=== PATIENT | female | born 1970 | race African-American/Black ===

== ENCOUNTER 2016-06-30 10:43 | Inpatient (IN) ==
[2016-06-30] MEDS ORDERED: SODIUM CHLORIDE 0.9% 2,000 ML IV STA (11:04)
[2016-06-30] MEDS ORDERED: HYDROmorphone 2 MG/1 ML VIAL IV STA ×2 (11:04→12:50)
[2016-06-30] MEDS ORDERED: METOCLOPRAMIDE 10 MG/2 ML VIAL IV STA (11:04)
[2016-06-30] MEDS ORDERED: ONDANSETRON 4 MG/2 ML VIAL IV STA (11:04)
[2016-06-30] MEDS ORDERED: PANTOPRAZOLE 40 MG VIAL IV STA (11:04)
--- NOTE | 2016-06-30 11:10 | Emergency Department Note ---
Arrival - Arrival Chief Complaint: Abdominal / Flank Pain Stated Complaint: pancreatitis,diarrhea,vomiting,nausea ED Nursing Triage Note: C/o upper abd pain and N/V/D-onset yesterday. States symptoms feel like previous pancreatitis flare ups. Mode of Arrival: Wheelchair Limitations: No Limitations Source: Patient Time Seen by Provider: 06/30/16 11:04 - History of Present Illness HPI Narrative: This 45-year-old black female presents with complaints of severe midepigastric pain associated with repeated bouts of vomiting and ongoing nausea. The patient states is similar to prior pancreatitis attacks, the last being in the last 6 months. She denies chills, fever, shortness of breath, or chest pain. The patient is a nondrinker and has never been given any explanation as to why she has recurrent pancreatitis. Of note, her mother with pancreatic carcinoma. Currently she presents very uncomfortable, squirming on the gurney, complaining of nausea. Onset (ago): hour(s) (patient presents 24 hours post onset of symptoms) Consistency: constant Severity: severe Severity scale (1-10): 8 Quality: burning Date of Last Menstrual Period: hysterectomy Allergies/Adverse Reactions: Allergies Allergy/AdvReac Type Severity Reaction Status Date / Time duloxetine [From Cymbalta] AdvReac Unknown/Unable Verified 07/21/15 14:16 to obtain Home Medications: Home Medications Medication Instructions Recorded Confirmed Type Citalopram [CeleXA] 20 mg PO BEDTIME 07/21/15 06/30/16 History Gabapentin 1 tablet PO TID 07/21/15 06/30/16 History Trazodone HCl 1 tablet PO DAILY PRN 07/21/15 06/30/16 History Zolpidem [Ambien] 1 tablet PO BEDTIME 07/21/15 06/30/16 History Hyoscyamine Tab [Levsin Tab] 0.125 mg PO QID PRN #30 tablet 07/27/15 06/30/16 Rx Topiramate [Topamax] 50 mg PO BID 09/20/15 06/30/16 History Metoclopramide Liquid [Reglan 10 mg PO ACHS #100 udcup 09/29/15 06/30/16 Rx Liquid] Pantoprazole Tab [Protonix Tab] 40 mg PO BID #60 tablet 09/29/15 06/30/16 Rx Review of System - Review of System 12 point system: reviewed and no additional remarkable complaints except as stated - Review of System Constitutional: Present: as per HPI Respiratory: Present: as per HPI Cardiovascular: Present: as per HPI Gastrointestinal: Present: as per HPI Medical,Surgical,& Family Hx - Medical History Cardio: History of: Hypertension, Cardiovascular Problems (heart murmur) Neurology: No history of: Seizures Gastrointestinal: History of: Pancreatitis Musculoskeletal: History of: Back/Neck Problems (Thoracic/Lumbar pain) - Surgical History Abdominal Surgeries: Surgical HX of: Abdominal Surgery, Cholecystectomy, Hernia Repair Reproductive Surgeries: Surgical HX of;: Section - Family History Family History: Reports;: Family Cancer (Mother of pancreatic cancer), Family Hypertension - Social History Smoking Status: Never smoker Frequency of Alcohol Use: None Type of Drug Use: None Exam Physical Examination: GENERAL: Well developed, well nourished black female in obvious discomfort HEENT: Normocephalic. No trauma. Moist mucous membranes. EOMI. PERRLA. ENT clear NECK: Supple. No adenopathy. CARDIAC: Regular. No murmurs. Heart rate 102 CHEST: Clear to auscultation. No respiratory distress. O2 sat 98% ABDOMEN: Soft. Very tender mid epigastrium with hypoactive bowel sounds. EXTREMITIES: No trauma. Normal ROM. No pedal edema. SKIN: No diaphoresis. No rash. NEURO: Alert. Physiologic exam. No focal deficits. Vital Signs: Vital Signs Temperature 98.1 F 06/30/16 10:48 Pulse Rate 88 06/30/16 12:20 Respiratory Rate 18 06/30/16 12:20 Blood Pressure 106/82 06/30/16 12:20 O2 Sat by Pulse Oximetry 100 06/30/16 12:20 Course - Reevaluation(s) Reevaluation #1: Discussed with patient the need for hospitalization to cool down pancreatic problem. - Consultations Consultation #1: Discussed patient with hospitalist service who will admit for further evaluation treatment. Results - Labs CBC & BMP: 06/30/16 11:03 06/30/16 11:03 Labs: I have reviewed the laboratory and noted the low potassium, elevated LFTs, and markedly elevated lipase - Diagnostic Findings Procedure: CT Abdomen and Pelvis: image reviewed by me, report reviewed by me ( benign CT with no evidence of pseudocyst) Disposition Clinical Impression: acute pancreatitis, hypokalemia Case discussed with: patient Disposition: Still a Patient Condition: Stable Time of Disposition: 13:50
[2016-06-30] MEDS ORDERED: PANTOPRAZOLE 40 MG VIAL IV ONE (11:18)
[2016-06-30] MEDS ORDERED: METOCLOPRAMIDE 10 MG/2 ML VIAL ONE (11:18)
[2016-06-30] MEDS ORDERED: ONDANSETRON 4 MG/2 ML VIAL ONE ×2 (11:19→14:21)
[2016-06-30] MEDS ORDERED: HYDROmorphone 2 MG/1 ML VIAL ONE (11:19)
[2016-06-30 11:33] LABS: Basophils % 0.5 % (0.0-0.8); Eosinophils # 0.1 10*3/uL (0.0-0.87); Eosinophils % 0.9 % (0.00-10.9); Hemoglobin 13.4 GM/DL (12.0-16.0); Immature Granulocytes % 0.3 %; Immature Granulocytes Absolute 0.02 #; Lymphocytes # 3.1 10*3/uL (1.4-4.0); Lymphocytes % 39.1 % (21.3-54.2); Mean Corpuscular HGB Conc 34.4 GM/DL (32-36); Mean Corpuscular Hemoglobin 26 PG (27-34); Mean Corpuscular Volume 75.7 FL (87-102); Mean Platelet Volume 11.3 FL (9.6-12.0); Monocytes # 0.5 10*3/uL (0.11-0.8); Monocytes % 6.1 % (1.7-12.7); Neutrophils # 4.2 10*3/uL (1.4-7.4); Neutrophils % 53.1 % (38.7-73.9); Platelet Count 309 10*3/uL (130-400); Red Blood Count 5.15 10*6/uL (3.8-5.5); Red Cell Distribution Width 13.5 % (9.3-17.3)
[2016-06-30 11:48] LABS: Apearance,Urine Slightly Hazy (Clear); Bilirubin,Urine Negative (Negative); Blood, Urine Negative (Negative); Glucose,Urine (UA) Negative (Negative); Ketones,Urine Negative (Negative); Mucus,Urine Occasional /LPF (Occasional); Nitrite,Urine Negative (Negative); Protein,Urine 30 MG/DL; RBC,Urine 1 /HPF (0-4); Squamous Epithelial Cell,Urine Occasional /HPF (0-10); Urine Color Yellow (Yellow); Urine Specific Gravity 1.013 (1.001-1.035); Urine Urobilinogen < 2.0 EU/DL (0.2-1.0); WBC,Urine 3 /HPF (0-6)
[2016-06-30 12:35] LABS: Alanine Aminotransferase 89 U/L (13-56); Albumin 4.3 G/DL (3.4-5.0); Alkaline Phosphatase 59 U/L (45-117); Amylase 101 U/L (25-115); Aspartate Amino Transferase 74 U/L (0-37); Blood Urea Nitrogen 12 MG/DL (7-18); Calcium 8.7 MG/DL (8.5-10.1); Glucose 87 MG/DL (74-106); Osmolality,Calculated 275.5 MOS/KG (273-304); Potassium 3.3 MMOL/L (3.5-5.1); Sodium 139 MMOL/L (136-145); Total Protein 8.9 G/DL (6.4-8.3); Troponin I Only < 0.015 NG/ML (0.00-0.045)
--- NOTE | 2016-06-30 13:18 | CT Report ---
CT abdomen pelvis w con Indication: Pancreatitis, nausea, vomiting, diarrhea Comparison: Prior CT abdomen pelvis dated 09/21/15 Technique: CT of the abdomen and pelvis was performed following administration of intravenous contrast. Coronal and sagittal reformatted images were additionally created and submitted for review. The total DLP is 773.1 mGy*cm. Findings: Very minimal posterior basilar dependent atelectatic changes are noted bilaterally. Lung bases are otherwise clear. There is no pleural or pericardial effusion. ABDOMEN: Liver/Gallbladder: No abnormal enhancing hepatic lesions. There is been a prior cholecystectomy. The portal vein is patent. Spleen: No acute findings. Pancreas: No prominence of the distal pancreas is stable from prior. There is no pancreatic ductal dilatation or other focal pancreatic abnormality. Adrenals: No significant abnormality Kidneys: Both kidneys enhance symmetrically with normal excretion of contrast from both kidneys on delayed images. Bowel/mesentery: Small bowel nondilated. There is no free fluid/air within the abdomen. There is no mesenteric adenopathy. Colon appears unremarkable. Anterior abdominal wall surgical alexei are noted which appear similar prior. Retroperitoneum: No evidence of aortic aneurysm or significant retroperitoneal adenopathy. PELVIS: No free fluid or adenopathy within the pelvis. The bladder appears unremarkable for degree of distention. There has been a prior hysterectomy. A 3 cm right ovarian cyst is noted. BONES: No acute or suspicious osseous abnormalities are identified. IMPRESSION: 1. No acute abnormality within the abdomen or pelvis to explain patient's symptoms. 2. Small right ovarian cyst measuring 3 cm. Otherwise, no significant change when compared to prior. 06/30/2016 1:10 PM PROCEDURE INTERPRETED AT [facility] DEPARTMENT OF RADIOLOGY Final Report Signed by: Luiz Pate
[2016-06-30] MEDS ORDERED: MORPHINE 2 MG/1 ML SYRINGE ONE (14:22)
[2016-06-30 14:24] LABS: Lactic Acid 2.1 MMOL/L (0.4-2.0)
[2016-06-30] MEDS: MORPHINE 2 MG/1 ML SYRINGE IV PRN ×4 (14:25→23:56)
[2016-06-30] MEDS: ONDANSETRON 4 MG/2 ML VIAL IV PRN ×3 (14:27→21:18)
--- NOTE | 2016-06-30 14:31 | Hospitalist History & Physical ---
Assessment and Plan (1) Abdominal pain Status: Acute Assessment and plan: According to previous records patient has a history of gastroparesis associated with gastritis and duodenitis. CT of the abdomen and pelvis was negative for any acute findings today. She does have a mild elevation in her lipase. This could be an exacerbation of her gastritis and gastroparesis she does have some nausea of vomiting and diarrhea but she denies any bloody stools. Patient will be admitted to regular medicine floor for IV fluids and pain control or bowel rest. Will start her on scheduled Reglan she did have a gastroenterology consultation with EGD done on previous admissions we will hold off on consulting GI. If she is not getting relief with the Reglan will switch to erythromycin which per GI notes was the next recommendation. Also, because of the diarrhea will check stools for C. difficile along with white blood cells and ova and parasites. Current Visit: No Qualifiers: Abdominal location: generalized Qualified Code(s): R10.84 - Generalized abdominal pain (2) Serum lipase elevation Status: Acute Current Visit: No History of Present Illness Chief complaint: abdominal pain History of present illness: Ms. Holden is a 45 year old female who presents complaining of mid epigastric abdominal pain with radiation to the right upper quadrant. Pain is constant and associated with nausea and vomiting. When she attempts to eat some grits his morning and she vomited. She denies any bloody stools. She denies any sick contacts. Patient states that she has a history of pancreatitis but after reviewing previous admissions she does not have a history of pancreatitis. It appears that she has erosive gastritis associated with duodenitis also gastroparesis. At that time she did have an extensive GI workup and was placed on Reglan and a proton pump inhibitor. Today her CT is normal without any signs of pancreatitis but she does have elevation of lipase of around 500. Home Medications Medication Instructions Recorded Confirmed Type Citalopram [CeleXA] 20 mg PO BEDTIME 07/21/15 06/30/16 History Gabapentin 1 tablet PO TID 07/21/15 06/30/16 History Trazodone HCl 1 tablet PO DAILY PRN 07/21/15 06/30/16 History Zolpidem [Ambien] 1 tablet PO BEDTIME 07/21/15 06/30/16 History Hyoscyamine Tab [Levsin Tab] 0.125 mg PO QID PRN #30 tablet 07/27/15 06/30/16 Rx Topiramate [Topamax] 50 mg PO BID 09/20/15 06/30/16 History Metoclopramide Liquid [Reglan 10 mg PO ACHS #100 udcup 09/29/15 06/30/16 Rx Liquid] Pantoprazole Tab [Protonix Tab] 40 mg PO BID #60 tablet 09/29/15 06/30/16 Rx Allergies Allergy/AdvReac Type Severity Reaction Status Date / Time duloxetine [From Cymbalta] AdvReac Unknown/Unable Verified 07/21/15 14:16 to obtain Medical,Surgical,& Family Hx - Medical History Cardio: History of: Hypertension, Cardiovascular Problems (heart murmur) Neurology: No history of: Seizures Gastrointestinal: History of: GI Problems (gastroparesis, erosive gastritis and duodenitis) Musculoskeletal: History of: Back/Neck Problems (Thoracic/Lumbar pain) - Surgical History Abdominal Surgeries: Surgical HX of: Abdominal Surgery, Cholecystectomy, EGD, Hernia Repair Reproductive Surgeries: Surgical HX of;: Section - Family History Family History: Reports;: Family Cancer (Mother of pancreatic cancer), Family Hypertension - Social History Smoking Status: Never smoker Frequency of Alcohol Use: None Type of Drug Use: None Marital Status: Single Lives With:: Alone Functional capacity: independent ambulation - Constitutional Constitutional: Present: as per HPI - EENT Eyes: Present: as per HPI Ears: Present: as per HPI Nose, mouth and throat: Present: as per HPI - Cardiovascular Cardiovascular: Present: as per HPI - Respiratory Respiratory: Present: as per HPI - Gastrointestinal Gastrointestinal: Present: abdominal pain, diarrhea, nausea, vomiting - Genitourinary Genitourinary: Present: as per HPI - Musculoskeletal Musculoskeletal: Present: as per HPI - Neurological Neurological: Present: as per HPI - Psychiatric Psychiatric: Present: as per HPI - Endocrine Endocrine: Present: as per HPI - Hematologic/Lymphatic Hematologic/Lymphatic: Present: as per HPI Exam - Constitutional Vitals: Period Temp Pulse Resp BP Sys/Mccarthy Pulse Ox Last 24 Hr 98.1 F 84-102 18-20 106-125/65-86 94-100 General appearance: over weight Exam: Middle-aged female lying in bed appears to be in discomfort but no respiratory distress - Head Head exam: Present: normocephalic, atraumatic - Eye Eye exam: Present: EOMI Pupils: Present: NASEEM - ENT ENT exam: Present: normal exam - Neck Neck exam: Present: normal inspection - Respiratory Respiratory exam: Present: clear to auscultation bilaterally - Cardiovascular Cardiovascular exam: Present: regular rate and rhythm - GI/Abdominal GI/Abdominal exam: Present: hypoactive bowel sounds, soft - Extremities Exam Extremities exam: Present: full ROM - Neurological Exam Neurological exam: Present: alert, oriented X3, CN II-XII intact - Psychiatric Psychiatric exam: Present: normal affect, normal mood - Skin Skin exam: Present: warm, intact Results - Labs CBC & BMP: 06/30/16 11:03 06/30/16 11:03 - Diagnostic Findings Procedure: CT: report reviewed by me (no acute abnormalities with normal size pancreas small right ovarian cyst stable from previous CT)
[2016-06-30] MEDS ORDERED: METOCLOPRAMIDE 10 MG/10 ML UDCUP PO SCH (16:30)
[2016-06-30] MEDS ORDERED: INFLUENZA VIRUS VACCINE 0.5 ML SYRINGE IM ONE (17:00)
[2016-06-30] MEDS: GABAPENTIN 300 MG CAPSULE PO SCH ×2 (17:06→20:31)
[2016-06-30] MEDS: HYOSCYAMINE 0.125 MG TABLET PO PRN ×2 (17:06→23:20)
[2016-06-30] MEDS: METOCLOPRAMIDE 10 MG/2 ML VIAL IV SCH ×2 (17:07→23:57)
[2016-06-30] MEDS: ENOXAPARIN 40 MG/0.4 ML SYRINGE SUBCUT SCH (17:07)
[2016-06-30] MEDS: SODIUM CHLORIDE 0.9% 1,000 ML IV SCH ×3 (17:15→23:21)
[2016-06-30] MEDS: TOPIRAMATE 25 MG TABLET PO SCH (20:31)
[2016-06-30] MEDS: ZALEPLON 5 MG CAPSULE PO SCH (20:31)
[2016-06-30] MEDS: CITALOPRAM 20 MG TABLET PO SCH (20:31)
[2016-06-30] MEDS: traZODone 50 MG TABLET PO PRN (20:31)
[2016-06-30] MEDS: PANTOPRAZOLE 40 MG VIAL IV SCH (20:32)
[2016-06-30] MEDS ORDERED: PANTOPRAZOLE 40 MG TABLET PO SCH (21:00)
[2016-07-01] MEDS: SODIUM CHLORIDE 0.9% 1,000 ML IV SCH ×4 (02:40→22:08)
[2016-07-01] MEDS: ONDANSETRON 4 MG/2 ML VIAL IV PRN ×4 (04:44→19:18)
[2016-07-01] MEDS: MORPHINE 2 MG/1 ML SYRINGE IV PRN (04:47)
[2016-07-01] MEDS: METOCLOPRAMIDE 10 MG/2 ML VIAL IV SCH ×3 (05:50→19:04)
[2016-07-01 06:51] LABS: Basophils % 0.4 % (0.0-0.8); Eosinophils # 0.2 10*3/uL (0.0-0.87); Eosinophils % 2.8 % (0.00-10.9); Hematocrit 30.3 VOL% (35.7-47.0); Hemoglobin 10.2 GM/DL (12.0-16.0); Immature Granulocytes % 0.2 %; Immature Granulocytes Absolute 0.01 #; Lymphocytes # 2.9 10*3/uL (1.4-4.0); Lymphocytes % 55.4 % (21.3-54.2); Mean Corpuscular HGB Conc 33.7 GM/DL (32-36); Mean Corpuscular Hemoglobin 26 PG (27-34); Mean Corpuscular Volume 78.3 FL (87-102); Mean Platelet Volume 11.1 FL (9.6-12.0); Monocytes # 0.4 10*3/uL (0.11-0.8); Monocytes % 7.8 % (1.7-12.7); Neutrophils # 1.8 10*3/uL (1.4-7.4); Neutrophils % 33.4 % (38.7-73.9); Platelet Count 210 10*3/uL (130-400); Red Blood Count 3.87 10*6/uL (3.8-5.5); Red Cell Distribution Width 13.9 % (9.3-17.3); White Blood Count 5.3 10*3/uL (4.5-13.71)
[2016-07-01 07:23] LABS: Bilirubin,Total 0.9 MG/DL (0.2-1.0); Osmolality,Calculated 293.1 MOS/KG (273-304); Potassium 3.6 MMOL/L (3.5-5.1); Total Protein 5.7 G/DL (6.4-8.3)
[2016-07-01] MEDS: PANTOPRAZOLE 40 MG VIAL IV SCH ×2 (08:47→21:32)
[2016-07-01] MEDS: GABAPENTIN 300 MG CAPSULE PO SCH ×3 (08:48→21:32)
[2016-07-01] MEDS: TOPIRAMATE 25 MG TABLET PO SCH ×2 (08:48→21:34)
--- NOTE | 2016-07-01 09:03 | Hospitalist Progress Note ---
Assessment and Plan (1) Abdominal pain Status: Acute Assessment and plan: According to previous records patient has a history of gastroparesis associated with gastritis and duodenitis. CT of the abdomen and pelvis was negative for any acute findings today. She does have a mild elevation in her lipase. This could be an exacerbation of her gastritis and gastroparesis she does have some nausea of vomiting and diarrhea but she denies any bloody stools. Patient will be admitted to regular medicine floor for IV fluids and pain control or bowel rest. Will start her on scheduled Reglan she did have a gastroenterology consultation with EGD done on previous admissions we will hold off on consulting GI. If she is not getting relief with the Reglan will switch to erythromycin which per GI notes was the next recommendation. Also, because of the diarrhea will check stools for C. difficile along with white blood cells and ova and parasites. 07/01/16: she is still complaining of a significant amount of pain. Lipase trending down, ? pancreatitis with normal CT may need to repeat if recommended by GI continue with fluids, pain meds, GI consult Current Visit: No Qualifiers: Abdominal location: generalized Qualified Code(s): R10.84 - Generalized abdominal pain (2) Serum lipase elevation Status: Acute Assessment and plan: trending down Current Visit: No Hospitalist: Subjective Interval history: 45-year-old female with history of gastritis, gastroparesis and duodenitis presented yesterday complaining of abdominal pain. She did have a lipase elevated around 540 which is down to around 200 today. She still complaining of significant amount of abdominal pain. CT of the abdomen and pelvis did not reveal any acute pathology. She's not had any more nausea vomiting or diarrhea since admission status abdominal pain. Exam - Constitutional Vitals: Period Temp Pulse Resp BP Sys/Mccarthy Pulse Ox Last 24 Hr 97.5 F-98.0 F 68-93 16-20 94-134/54-85 97-100 General appearance: no acute distress - Head Head exam: Present: normocephalic, atraumatic - Eye Eye exam: Present: EOMI Pupils: Present: NASEEM - Neck Neck exam: Present: normal inspection - Respiratory Respiratory exam: Present: clear to auscultation bilaterally - Cardiovascular Cardiovascular exam: Present: regular rate and rhythm - GI/Abdominal GI/Abdominal exam: Present: hypoactive bowel sounds, tenderness, soft - Extremities Exam Extremities exam: Present: full ROM - Neurological Exam Neurological exam: Present: alert, oriented X3, CN II-XII intact - Psychiatric Psychiatric exam: Present: normal affect, normal mood - Skin Skin exam: Present: normal color, warm, intact Results - Labs CBC & BMP: 07/01/16 06:25 07/01/16 06:25 Specialty Discharge - Follow Up or Referrals - Discharge Medications No Action Citalopram [CeleXA] 20 mg PO BEDTIME Gabapentin 1 tablet PO TID Zolpidem [Ambien] 1 tablet PO BEDTIME Hyoscyamine Tab [Levsin Tab] 0.125 mg PO QID PRN #30 tablet PRN Reason: stomach cramps Topiramate [Topamax] 50 mg PO BID Metoclopramide Liquid [Reglan Liquid] 10 mg PO ACHS #100 udcup Pantoprazole Tab [Protonix Tab] 40 mg PO BID #60 tablet
[2016-07-01 09:50] LABS: Hypochromasia 1+
[2016-07-01] MEDS: HYDROmorphone 2 MG/1 ML VIAL IV PRN ×2 (10:27→14:43)
[2016-07-01] MEDS: ENOXAPARIN 40 MG/0.4 ML SYRINGE SUBCUT SCH (14:50)
--- NOTE | 2016-07-01 14:51 | Gastrointestinal Consult Note ---
Assessment and Plan - Time spent with patient Time spent with patient: Greater than 30 minutes (1) Abdominal pain Status: Acute Current Visit: No Qualifiers: Abdominal location: generalized Qualified Code(s): R10.84 - Generalized abdominal pain (2) Serum lipase elevation Status: Acute Current Visit: No (3) Other specified counseling Status: Acute Current Visit: Yes History of Present Illness History of present illness: Ms. Holden is a 45 year old female Home Medications Medication Instructions Recorded Confirmed Type Citalopram [CeleXA] 20 mg PO BEDTIME 07/21/15 06/30/16 History Gabapentin 1 tablet PO TID 07/21/15 06/30/16 History Zolpidem [Ambien] 1 tablet PO BEDTIME 07/21/15 06/30/16 History Hyoscyamine Tab [Levsin Tab] 0.125 mg PO QID PRN #30 tablet 07/27/15 06/30/16 Rx Topiramate [Topamax] 50 mg PO BID 09/20/15 06/30/16 History Metoclopramide Liquid [Reglan 10 mg PO ACHS #100 udcup 09/29/15 06/30/16 Rx Liquid] Pantoprazole Tab [Protonix Tab] 40 mg PO BID #60 tablet 09/29/15 06/30/16 Rx Allergies Allergy/AdvReac Type Severity Reaction Status Date / Time duloxetine [From Cymbalta] AdvReac Unknown/Unable Verified 07/21/15 14:16 to obtain Medical,Surgical,& Family Hx - Medical History Cardio: History of: Hypertension, Cardiovascular Problems (heart murmur) Neurology: No history of: Seizures Gastrointestinal: History of: Pancreatitis, GI Problems (gastroparesis, erosive gastritis and duodenitis) Musculoskeletal: History of: Back/Neck Problems (Thoracic/Lumbar pain) - Surgical History Abdominal Surgeries: Surgical HX of: Abdominal Surgery, Cholecystectomy, EGD, Hernia Repair Reproductive Surgeries: Surgical HX of;: Section - Family History Family History: Reports;: Family Cancer (Mother of pancreatic cancer), Family Hypertension - Social History Smoking Status: Never smoker Frequency of Alcohol Use: None Type of Drug Use: None Exam - Constitutional Vitals: Period Temp Pulse Resp BP Sys/Mccarthy Pulse Ox Last 24 Hr 97.5 F-98.0 F 68-93 16-20 94-134/54-85 92-100 Results - Labs CBC & BMP: 07/01/16 06:25 07/01/16 06:25 Specialty Discharge - Follow Up or Referrals - Discharge Medications No Action Citalopram [CeleXA] 20 mg PO BEDTIME Gabapentin 1 tablet PO TID Zolpidem [Ambien] 1 tablet PO BEDTIME Hyoscyamine Tab [Levsin Tab] 0.125 mg PO QID PRN #30 tablet PRN Reason: stomach cramps Topiramate [Topamax] 50 mg PO BID Metoclopramide Liquid [Reglan Liquid] 10 mg PO ACHS #100 udcup Pantoprazole Tab [Protonix Tab] 40 mg PO BID #60 tablet Note Addendum: PLEASE NOTE -- automatic citation of patient information is unavoidable in this electronic note. I have made a reasonable effort to review the information cited , but it is not a part of my evaluation, impression, or recommendation unless specifically discussed in the dictated text that follows. As well, voice recognition software was used in the creation of this clinical note. Reasonable effort was made to identify and correct gross errors. Despite proofreading, errors in high lift driver may be present, including nonsense verbiage at times. If you encounter such an error, please contact me at [phone] for discussion and correction. -- Keena Chief complaint: abdominal pain, nausea, vomiting History of present illness: the patient is a 45-year-old female, a new patient, seen by consultation for evaluation of abdominal pain, nausea, and vomiting. The patient is admitted to the hospitalist service under the care of Dr. Rowena Thompson with a primary diagnosis of same. The patient reports intermittent epigastric abdominal pain with radiation to the right upper quadrant. This has been a recurrent problem for her with a prior diagnosis in August 2015. During the prior admission she underwent upper endoscopy with finding the erosive gastritis and duodenal artists. She was also noted to be on chronic narcotic analgesia and was noted to have gastroparesis. At discharge, she was using both Protonix and Reglan for control of her symptoms. Recommendation was made for her to follow-up with Dr. Topete in the gastroenterology clinic but she did not do so. She has continued using both Protonix and Reglan but, unfortunately, has also continued using chronic narcotic analgesics. She reports baseline abdominal symptoms that include chronic aching pain, sharp peroxisomal pain in the epigastrium, frequent nausea, and occasional vomiting. She reports baseline abdominal pain prior to this past Sunday or when she began to have increasing frequency of diarrhea, increasing abdominal pain, and increasing nausea with vomiting. She presented to the emergency department yesterday evening where evaluation revealed mild elevation in serum lipase but was otherwise unremarkable. She was admitted with a tentative diagnosis of acute pancreatitis versus gastritis exacerbated by gastroparesis. She has been treated conservatively with bowel rest, analgesia, fluid resuscitation, proton pump inhibitor, and erythromycin. With this she has experienced some improvement in symptoms and some improvement in laboratory values. She is concerned that her gastritis may be exacerbated and would like to have a repeat upper endoscopy. She reports a family history of pancreatic cancer and her mother. She notes that she does have an appetite and would like to try something to eat. Patient denies fever, chills, night sweats, rigors, headache, dizziness, neck pain, visual changes, redness of the eyes, dysphagia, odynophagia, difficulty chewing, chest pain, shortness of breath, hematemesis, hematochezia, melena, proctalgia, constipation, dysuria, skin changes, temperature regulation issues, flushing, easy bleeding/bruising, musculoskeletal pain, mental status change, numbness/weakness in the extremities, yellowing of the eyes/skin, cutaneous eruptions, family history of gastrointestinal cancer and colon polyps, and other complaints in general. Review of systems: 12 point review of systems was negative except as documented above. Outpatient medications: Ambien, Topamax, Protonix, Reglan, Levsin, gabapentin, Celexa Inpatient medications: [place], Celexa, Lovenox, Neurontin, Dilaudid, Levsin, Reglan, Zofran, Protonix, Topamax, trazodone, Sonata, normal saline infusion Past Medical History: hypertension, gastroparesis, erosive gastritis, chronic back pain, cholecystitis status post cholecystectomy, hernia repair, the [place] section Social history: negative tobacco. Negative alcohol Family history: mother of pancreatic cancer Physical examination: Vital Signs: Current vital signs reviewed and documented above. General Appearance: lying in bed. Comfortable. Head: Normocephalic. Neck: Palpation of the neck revealed no abnormalities. Eyes: No scleral icterus. No scleral injection. No conjunctival pallor. Oral Cavity: Odor of breath was normal. No drooling was observed. Lips showed no abnormalities. Floor of the mouth showed no abnormalities. Pharynx: Oropharynx was normal. Lungs: Respiration rhythm and depth was normal. Cardiovascular: Heart rate and rhythm were normal. No murmurs were appreciated. Abdomen: abdomen was not distended. Abdominal palpation revealed mild nonfocal tenderness and no hepatosplenomegaly. Ascites was not discovered. Abdominal auscultation revealed positive bowel sounds. Musculoskeletal System: Musculoskeletal system was grossly normal. Neurological: level of consciousness was normal. Speech was normal. Skin: General appearance was normal. Color and pigmentation were normal. No skin lesions. Laboratory: white blood count 5.3, hemoglobin 10.2, hematocrit 30.3, platelets 210, ALT 48, AST 28, total bilirubin 0.9, alkaline phosphatase 41, albumin 3.0, lipase 240 (down from 550 on admission) Radiology: CT of the abdomen and pelvis reveals " No acute abnormality within the abdomen or pelvis to explain patient symptoms." Impressions: 1. Abdominal pain -- this is likely multifactorial with possible contribution from acute pancreatitis as well as gastroparesis and persisting gastritis. I agree with bowel rest, analgesia, and hydration. As the patient has developed an appetite, it would be reasonable to give a trial of clear liquids. I recommend continued Reglan along with continued erythromycin as this seems to be making a positive difference. It would not be unreasonable to repeat an upper endoscopy to determine whether there is persistent or worsening inflammatory change. The patient has asked about the possibility of gastric pacing and this could be beneficial to her but she would need a much more in- depth outpatient evaluation and medication trials before such a recommendation would be made. 2. Elevated serum lipase -- this is consistent with acute pancreatitis but not diagnostic. The patient's clinical symptoms are also consistent. With her family history of pancreatic cancer, some consideration might be given to screening against genetic predisposition. Again, however, this would be an outpatient evaluation. 3. Other specified counseling: The patient was seen for greater than 30 minutes. The patient was counseled for greater than 50% of this time regarding differential diagnosis, likely diagnosis, diagnostic and therapeutic alternatives, risks/benefits/alternatives of medications and procedures, and plan of care generally. The patient expressed understanding and wishes to proceed. Recommendations: -- trial of clear liquid diet -- continued aggressive hydration -- analgesia as indicated but minimize to the greatest extent possible -- continued Reglan and erythromycin -- consider repeat upper endoscopy -- continue proton pump inhibitor -- consider evaluation against genetic predisposition to pancreatic disease -- thank you for this consultation. We will follow with you.
[2016-07-01] MEDS: HYOSCYAMINE 0.125 MG TABLET PO PRN (21:32)
[2016-07-01] MEDS: CITALOPRAM 20 MG TABLET PO SCH (21:33)
[2016-07-01] MEDS: traZODone 50 MG TABLET PO PRN (21:33)
[2016-07-01] MEDS: ZALEPLON 5 MG CAPSULE PO SCH (21:35)
[2016-07-02] MEDS: METOCLOPRAMIDE 10 MG/2 ML VIAL IV SCH ×4 (00:07→17:20)
[2016-07-02] MEDS: HYDROmorphone 2 MG/1 ML VIAL IV PRN ×5 (00:07→20:37)
[2016-07-02] MEDS: ONDANSETRON 4 MG/2 ML VIAL IV PRN ×5 (00:08→20:35)
[2016-07-02] MEDS: SODIUM CHLORIDE 0.9% 1,000 ML IV SCH ×2 (06:37→16:18)
--- NOTE | 2016-07-02 08:06 | Hospitalist Progress Note ---
Assessment and Plan (1) Abdominal pain Status: Acute Assessment and plan: Appreciate GI consult patient is better will advance diet as tolerated Current Visit: No Qualifiers: Abdominal location: generalized Qualified Code(s): R10.84 - Generalized abdominal pain Hospitalist: Subjective Interval history: Patient still with abdominal pain but seems to be having less diarrhea Exam - Constitutional Vitals: Period Temp Pulse Resp BP Sys/Mccarthy Pulse Ox Last 24 Hr 97.5 F-99.1 F 68-73 16-20 103-137/53-87 92-99 Exam: Constitutional: General appearance is normal Eyes: Pupils equal round react to light and accommodation conjunctiva and lids are normal Neck: supple without masses Respiratory: Respiratory effort is normal. Lungs are clear to auscultation. Resonant to percussion. Cardiac: Regular rate and rhythm without murmur rub or gallop. PMI at the midclavicular line by palpation. Carotid arteries 2+ palpation no bruits GI: Bowel sounds normoactive, no tenderness or rebound tenderness, no organomegaly Extremities: no clubbing cyanosis or edema Results - Labs CBC & BMP: 07/01/16 06:25 07/01/16 06:25 Specialty Discharge - Follow Up or Referrals - Discharge Medications No Action Citalopram [CeleXA] 20 mg PO BEDTIME Gabapentin 1 tablet PO TID Zolpidem [Ambien] 1 tablet PO BEDTIME Hyoscyamine Tab [Levsin Tab] 0.125 mg PO QID PRN #30 tablet PRN Reason: stomach cramps Topiramate [Topamax] 50 mg PO BID Metoclopramide Liquid [Reglan Liquid] 10 mg PO ACHS #100 udcup Pantoprazole Tab [Protonix Tab] 40 mg PO BID #60 tablet
[2016-07-02] MEDS: TOPIRAMATE 25 MG TABLET PO SCH ×2 (08:45→20:34)
[2016-07-02] MEDS: PANTOPRAZOLE 40 MG VIAL IV SCH ×2 (08:45→20:32)
[2016-07-02] MEDS: GABAPENTIN 300 MG CAPSULE PO SCH ×3 (08:46→20:34)
--- NOTE | 2016-07-02 09:09 | Gastrointestinal Progress Note ---
Assessment and Plan (1) Abdominal pain Status: Acute Current Visit: No Qualifiers: Abdominal location: generalized Qualified Code(s): R10.84 - Generalized abdominal pain (2) Serum lipase elevation Status: Acute Current Visit: No (3) Other specified counseling Status: Acute Current Visit: Yes Exam (Progress Note) - Constitutional Vitals: Period Temp Pulse Resp BP Sys/Mccarthy Pulse Ox Last 24 Hr 97.5 F-99.1 F 65-73 16-20 103-137/53-87 92-99 Results - Labs CBC & BMP: 07/01/16 06:25 07/01/16 06:25 Specialty Discharge - Follow Up or Referrals - Discharge Medications No Action Citalopram [CeleXA] 20 mg PO BEDTIME Gabapentin 1 tablet PO TID Zolpidem [Ambien] 1 tablet PO BEDTIME Hyoscyamine Tab [Levsin Tab] 0.125 mg PO QID PRN #30 tablet PRN Reason: stomach cramps Topiramate [Topamax] 50 mg PO BID Metoclopramide Liquid [Reglan Liquid] 10 mg PO ACHS #100 udcup Pantoprazole Tab [Protonix Tab] 40 mg PO BID #60 tablet Note Addendum: PLEASE NOTE -- automatic citation of patient information is unavoidable in this electronic note. I have made a reasonable effort to review the information cited , but it is not a part of my evaluation, impression, or recommendation unless specifically discussed in the dictated text that follows.~ As well, voice recognition software was used in the creation of this clinical note. Reasonable effort was made to identify and correct gross errors. Despite proofreading, errors in chip loft worker may be present, including nonsense verbiage at times. If you encounter such an error, please contact me at [phone] for discussion and correction. -- Keena Chief complaint: abdominal pain, nausea, vomiting History of present illness: the patient is a 45-year-old female seen for follow- up of abdominal pain. She has tried a clear liquid diet and has tolerated this but notes that she variants of worsening pain after eating. She continues with persistent she is not having any nausea at present. She continues with low- level pain as well. Review of systems: 12 point review of systems was negative except as documented above. medications: [place], Celexa, Lovenox, Neurontin, Dilaudid, Levsin, Reglan, Zofran , Protonix, Topamax, trazodone, Sonata, normal saline infusion Physical examination:~ Vital Signs: Current vital signs reviewed and documented above.~ General Appearance: lying in bed. Comfortable. Head: Normocephalic.~ Neck: Palpation of the neck revealed no abnormalities.~ Eyes: No scleral icterus.~ No scleral injection.~ No conjunctival pallor.~ Oral Cavity: Odor of breath was normal. No drooling was observed. Lips showed no abnormalities. Floor of the mouth showed no abnormalities.~ Pharynx: Oropharynx was normal.~ Lungs: Respiration rhythm and depth was normal.~ Cardiovascular: Heart rate and rhythm were normal.~ Abdomen: abdomen was not distended. Abdominal palpation revealed mild nonfocal tenderness and no hepatosplenomegaly. Ascites was not discovered. Abdominal auscultation revealed positive bowel sounds. Musculoskeletal System: Musculoskeletal system was grossly normal.~ Neurological: level of consciousness was normal. Speech was normal. Skin: General appearance was normal. Color and pigmentation were normal. No skin lesions. ~ Laboratory: no new laboratories this morning Radiology: reviewed Impressions:~ 1. Abdominal pain -- this is likely multifactorial with possible contribution from acute pancreatitis as well as gastroparesis and persisting gastritis. I recommend holding her diet at clears. If her pain is not improving by tomorrow, and she may need repeat upper endoscopy. I will leave this to Dr. Topete's discretion. 2. Elevated serum lipase -- as previously discussed, this is consistent with pancreatitis. The patient's clinical condition is marginally improved but we should continue with hydration, etc. as discussed above. 3. Other specified counseling:~ The patient was seen for greater than 30 minutes.~ The patient was counseled for greater than 50% of this time regarding differential diagnosis, likely diagnosis, diagnostic and therapeutic alternatives, risks/benefits/alternatives of medications and procedures, and plan of care generally.~ The patient expressed understanding and wishes to proceed. Recommendations: -- maintain clear liquid diet -- continued aggressive hydration -- analgesia as indicated but minimize to the greatest extent possible -- continued Reglan and erythromycin -- consider repeat upper endoscopy -- continue proton pump inhibitor -- consider evaluation against genetic predisposition to pancreatic disease -- we will continue to follow with you. Dr. Topete will resume G.I. care for this patient tomorrow.
[2016-07-02] MEDS: ENOXAPARIN 40 MG/0.4 ML SYRINGE SUBCUT SCH (15:28)
[2016-07-02] MEDS: ZALEPLON 5 MG CAPSULE PO SCH (20:34)
[2016-07-02] MEDS: CITALOPRAM 20 MG TABLET PO SCH (20:34)
[2016-07-02] MEDS: HYOSCYAMINE 0.125 MG TABLET PO PRN (20:34)
[2016-07-03] MEDS: METOCLOPRAMIDE 10 MG/2 ML VIAL IV SCH ×3 (00:29→11:51)
[2016-07-03] MEDS: ONDANSETRON 4 MG/2 ML VIAL IV PRN ×7 (00:31→20:59)
[2016-07-03] MEDS: HYDROmorphone 2 MG/1 ML VIAL IV PRN ×7 (00:33→21:35)
[2016-07-03] MEDS: SODIUM CHLORIDE 0.9% 1,000 ML IV SCH ×4 (06:10→16:50)
[2016-07-03] MEDS: PANTOPRAZOLE 40 MG VIAL IV SCH ×2 (07:59→20:58)
[2016-07-03] MEDS: GABAPENTIN 300 MG CAPSULE PO SCH ×3 (07:59→20:59)
[2016-07-03] MEDS: TOPIRAMATE 25 MG TABLET PO SCH ×2 (07:59→20:58)
[2016-07-03] MEDS: ENOXAPARIN 40 MG/0.4 ML SYRINGE SUBCUT SCH (15:12)
--- NOTE | 2016-07-03 15:31 | Gastrointestinal Progress Note ---
Assessment and Plan (1) Gastritis and duodenitis Status: Acute Assessment and plan: This was documented on previous upper endoscopy back in August 2015, I don't think that with Protonix being given twice a day that she necessarily needs to have a repeat done to see if still present. She is being covered adequately for acid-related phenomenon with this medical regimen. Current Visit: Yes (2) History of diabetic gastroparesis Status: Acute Assessment and plan: Patient does have gastroparesis as noted from the bezoar in her stomach seen during her upper endoscopy back in August 2015. She has been taking Reglan as an outpatient and may have developed some tachyphylactic cyst to this medication. We will try and switch her over to erythromycin at this point to see if that works better. Unfortunately she remains on narcotics due to her pancreatitis-- hopefully we can wean these soon, as her stomach improves. If we are going to treat her like she is scheduled pancreatitis we need to make her nothing by mouth. Current Visit: Yes (3) Acute pancreatitis Status: Acute Assessment and plan: Clinical symptoms can lag behind the biochemical markers for pancreatitis, the patient states that she still has 8 out of 10 abdominal pain. We will go ahead and make her nothing by mouth and hold off on further feedings for the present time. Her lipase level is in the normal range at this time. Again, we are not quite sure why she got the pancreatitis. Biochemically, she is mildly dehydrated with renal insufficiency. Current Visit: No (4) Abdominal pain, epigastric Status: Acute Current Visit: No Gastroenterology - PN: Subj Interval history: Patient known to me from previous admissions. Currently she notes that her abdominal pain is down from 10 out of 10 to about an 8 out of 10 in intensity. Still on the right upper quadrant/epigastric region. It is unclear why she has pancreatitis as her gallbladder has already been removed and she has very minimal intake of alcohol on a routine basis. This may be medication effect, or hypertriglyceridemia. Unfortunately is too late to check her triglyceride levels this admission but we may do this as an outpatient later on. Unfortunately she is been on Reglan since she left back in August and she may have developed tachyphylaxis to this medication. She is already taking Protonix twice daily. I do not feel that a repeat upper endoscopy is going to be helpful at this point. Exam (Progress Note) - Constitutional General appearance: mild distress - Head Head exam: Present: normocephalic, atraumatic - Eye Eye exam: Present: EOMI Pupils: Present: NASEEM - Respiratory Respiratory exam: Present: clear to auscultation bilaterally. Absent: rhonchi, stridor, wheezes - Cardiovascular Cardiovascular exam: Present: regular rate and rhythm - GI/Abdominal GI/Abdominal exam: Present: distended, hypoactive bowel sounds, tenderness ( epigastric and right upper quadrant tenderness to deep palpation), soft. Absent : ascites, guarding - Extremities Exam Extremities exam: Present: normal inspection. Absent: edema - Back Exam Back exam: Present: normal inspection - Neurological Exam Neurological exam: Present: alert, oriented X3, CN II-XII intact. Absent: motor sensory deficit - Psychiatric Psychiatric exam: Present: normal affect, normal mood - Skin Skin exam: Present: warm Results - Labs CBC & BMP: 07/01/16 06:25 07/01/16 06:25 Specialty Discharge - Follow Up or Referrals - Discharge Medications No Action Citalopram [CeleXA] 20 mg PO BEDTIME Gabapentin 1 tablet PO TID Zolpidem [Ambien] 1 tablet PO BEDTIME Hyoscyamine Tab [Levsin Tab] 0.125 mg PO QID PRN #30 tablet PRN Reason: stomach cramps Topiramate [Topamax] 50 mg PO BID Metoclopramide Liquid [Reglan Liquid] 10 mg PO ACHS #100 udcup Pantoprazole Tab [Protonix Tab] 40 mg PO BID #60 tablet
[2016-07-03] MEDS: ERYTHROMYCIN INJ 250 MG in SODIUM CHLORIDE 0.9% 100 ML IV SCH ×2 (16:49→21:01)
--- NOTE | 2016-07-03 17:24 | Hospitalist Progress Note ---
Assessment and Plan (1) Abdominal pain Problem details: likely multifactorial due to problems lised below Status: Acute Current Visit: No Qualifiers: Abdominal location: generalized Qualified Code(s): R10.84 - Generalized abdominal pain (2) Acute pancreatitis Problem details: possibly early pancreatitis per GI service eval. c/w IVF/ antiemetic/pain med prn Status: Acute Current Visit: No (3) Gastritis and duodenitis Problem details: PPI. GI service to see pt later today.? EGD. c/w PPI Status : Acute Current Visit: Yes (4) History of diabetic gastroparesis Status: Acute Current Visit: Yes (5) KRISTA (acute kidney injury) Problem details: serum Cr improving, monitor Cr. check FeNa. Status: Acute Current Visit: Yes Hospitalist: Subjective Interval history: pt still having abd pain but little better, now moderate no severe. pt denies CP , sob, no N/V O/N, no fever/chills, no cough and diarrhea reported since yesterday. GI service to see pt later today. Exam - Constitutional Vitals: Period Temp Pulse Resp BP Sys/Mccarthy Pulse Ox Last 24 Hr 97.9 F 71 17 126/74 96 Exam: Gen: a&ox3, NAD Neck: no JVD, no LN enlargement Lung: BS reduced at lung bases, cta abd: soft, epigastric tenderness radiate to back and RUQ pain, no guarding/ rebound. heart: s1s2, regular rythm skin: warm, dry, no jaundice, no tremors Psych: cooperative HEENT: PERRL Results - Labs CBC & BMP: 07/01/16 06:25 07/01/16 06:25 Specialty Discharge - Follow Up or Referrals - Discharge Medications No Action Citalopram [CeleXA] 20 mg PO BEDTIME Gabapentin 1 tablet PO TID Zolpidem [Ambien] 1 tablet PO BEDTIME Hyoscyamine Tab [Levsin Tab] 0.125 mg PO QID PRN #30 tablet PRN Reason: stomach cramps Topiramate [Topamax] 50 mg PO BID Metoclopramide Liquid [Reglan Liquid] 10 mg PO ACHS #100 udcup Pantoprazole Tab [Protonix Tab] 40 mg PO BID #60 tablet
[2016-07-03] MEDS: ZALEPLON 5 MG CAPSULE PO SCH (20:58)
[2016-07-03] MEDS: CITALOPRAM 20 MG TABLET PO SCH (21:35)
[2016-07-04] MEDS: HYDROmorphone 2 MG/1 ML VIAL IV PRN ×5 (01:43→17:16)
[2016-07-04] MEDS: ONDANSETRON 4 MG/2 ML VIAL IV PRN ×5 (01:44→17:15)
[2016-07-04] MEDS: SODIUM CHLORIDE 0.9% 1,000 ML IV SCH ×4 (01:52→21:13)
[2016-07-04] MEDS: ERYTHROMYCIN INJ 250 MG in SODIUM CHLORIDE 0.9% 100 ML IV SCH ×4 (03:13→21:13)
[2016-07-04 06:15] LABS: Basophils % 0.7 % (0.0-0.8); Eosinophils # 0.2 10*3/uL (0.0-0.87); Eosinophils % 3.1 % (0.00-10.9); Hematocrit 31.5 VOL% (35.7-47.0); Hemoglobin 10.2 GM/DL (12.0-16.0); Immature Granulocytes % 0.4 %; Immature Granulocytes Absolute 0.02 #; Lymphocytes # 3.1 10*3/uL (1.4-4.0); Lymphocytes % 56.4 % (21.3-54.2); Mean Corpuscular HGB Conc 32.4 GM/DL (32-36); Mean Corpuscular Hemoglobin 25 PG (27-34); Mean Corpuscular Volume 78.4 FL (87-102); Mean Platelet Volume 11.1 FL (9.6-12.0); Monocytes # 0.4 10*3/uL (0.11-0.8); Monocytes % 6.4 % (1.7-12.7); Neutrophils # 1.8 10*3/uL (1.4-7.4); Platelet Count 249 10*3/uL (130-400); Red Blood Count 4.02 10*6/uL (3.8-5.5); Red Cell Distribution Width 13.8 % (9.3-17.3); White Blood Count 5.4 10*3/uL (4.5-13.71)
[2016-07-04 06:43] LABS: Eosinophils 1 % (0-10); Hypochromasia 1+; Lymphocytes 58 % (20-55); Nucleated Red Blood Cells 1 (0-5); Platelet Estimate Adequate; Segmented Neutrophils 35 % (50-85); Total Cells Counted 100
[2016-07-04 06:57] LABS: Calcium 7.9 MG/DL (8.5-10.1); Osmolality,Calculated 288.4 MOS/KG (273-304); Potassium 3.9 MMOL/L (3.5-5.1)
--- NOTE | 2016-07-04 08:48 | Gastrointestinal Progress Note ---
Assessment and Plan (1) Gastritis and duodenitis Problem details: PPI. GI service to see pt later today.? EGD. c/w PPI Status : Acute Assessment and plan: This was documented on previous upper endoscopy back in August 2015, I don't think that with Protonix being given twice a day that she necessarily needs to have a repeat done to see if still present. She is being covered adequately for acid-related phenomenon with this medical regimen. 07/04/16-- patient is under treatment with Protonix 40 mg IV twice a day which should be suppressing her acidity for more than 20 out of 24 hours per day. Current Visit: Yes (2) History of diabetic gastroparesis Status: Acute Assessment and plan: Patient does have gastroparesis as noted from the bezoar in her stomach seen during her upper endoscopy back in August 2015. She has been taking Reglan as an outpatient and may have developed some tachyphylactic cyst to this medication. We will try and switch her over to erythromycin at this point to see if that works better. Unfortunately she remains on narcotics due to her pancreatitis-- hopefully we can wean these soon, as her stomach improves. If we are going to treat her like she is scheduled pancreatitis we need to make her nothing by mouth. 07/04/16-- She is getting treated with Dilaudid, and states that she is still requiring this. I switched her over from Reglan which she has been on for some time to erythromycin which has improved motility but also has a pro--nausea and effect which may also be mildly irritating her. At present time the patient remains nothing by mouth. We do not want to advance her diet until she feels ready for this. Current Visit: Yes (3) Acute pancreatitis Problem details: possibly early pancreatitis per GI service eval. c/w IVF/ antiemetic/pain med prn Status: Acute Assessment and plan: Clinical symptoms can lag behind the biochemical markers for pancreatitis, the patient states that she still has 8 out of 10 abdominal pain. We will go ahead and make her nothing by mouth and hold off on further feedings for the present time. Her lipase level is in the normal range at this time. Again, we are not quite sure why she got the pancreatitis. Biochemically, she is mildly dehydrated with renal insufficiency. 07/04/16--continue with high fluid rate rehydration. Nothing to eat today until her symptoms start to raul inserting the abdominal tenderness. We may end up having to be CT her belly to make sure she is not developing a pancreatic pseudocyst if pain continues, unabated. Current Visit: No (4) Abdominal pain, epigastric Status: Acute Assessment and plan: See above. Current Visit: No Gastroenterology - PN: Subj Interval history: The patient thinks that her pain is at an 8.5 out of 10 and is difficult to tell whether or not this is due to the gastroparesis which may be worsened by the narcotics or the underlying pancreatitis. Exam (Progress Note) - Constitutional Vitals: Period Temp Pulse Resp BP Sys/Mccarthy Pulse Ox Last 24 Hr 97.8 F-98.1 F 65-72 16-18 119-137/69-87 95-96 General appearance: mild distress - Respiratory Respiratory exam: Present: clear to auscultation bilaterally - Cardiovascular Cardiovascular exam: Present: regular rate and rhythm - GI/Abdominal GI/Abdominal exam: Present: hypoactive bowel sounds, tenderness (epigastric and right upper quadrant.), soft - Neurological Exam Neurological exam: Present: alert, oriented X3, CN II-XII intact - Psychiatric Psychiatric exam: Present: normal affect, normal mood - Skin Skin exam: Present: warm Results - Labs CBC & BMP: 07/04/16 05:23 07/04/16 05:23 Specialty Discharge - Follow Up or Referrals - Discharge Medications No Action Citalopram [CeleXA] 20 mg PO BEDTIME Gabapentin 1 tablet PO TID Zolpidem [Ambien] 1 tablet PO BEDTIME Hyoscyamine Tab [Levsin Tab] 0.125 mg PO QID PRN #30 tablet PRN Reason: stomach cramps Topiramate [Topamax] 50 mg PO BID Metoclopramide Liquid [Reglan Liquid] 10 mg PO ACHS #100 udcup Pantoprazole Tab [Protonix Tab] 40 mg PO BID #60 tablet
[2016-07-04] MEDS: TOPIRAMATE 25 MG TABLET PO SCH ×2 (09:40→21:13)
[2016-07-04] MEDS: GABAPENTIN 300 MG CAPSULE PO SCH ×3 (09:40→21:12)
[2016-07-04] MEDS: PANTOPRAZOLE 40 MG VIAL IV SCH ×2 (09:40→21:13)
--- NOTE | 2016-07-04 13:06 | Hospitalist Progress Note ---
Assessment and Plan (1) Abdominal pain Problem details: likely multifactorial due to problems lised below Status: Acute Assessment and plan: Slowly improving clinically, GI service following Current Visit: No Qualifiers: Abdominal location: generalized Qualified Code(s): R10.84 - Generalized abdominal pain (2) Gastritis and duodenitis Status: Acute Assessment and plan: PPI. per GI Current Visit: Yes (3) Acute pancreatitis Status: Acute Assessment and plan: possibly early pancreatitis per GI. c/w IVF/antiemetic/pain med prn Current Visit: No (4) History of diabetic gastroparesis Status: Acute Current Visit: Yes (5) KRISTA (acute kidney injury) Status: Acute Assessment and plan: serum Cr 1.3, monitor Cr. FeN ~1.4 % Current Visit: Yes (6) Microcytic hypochromic anemia Status: Acute Assessment and plan: check iron studies and FOBT, monitor H/H, PPI, GI following overall. Hb 10.2 and was 13.4 on admix, though hydration is a factor, GIB is a possibility w above Dx. hold lovenox for now and check FOBT. VS ok Current Visit: Yes Hospitalist: Subjective Interval history: She still not tolerating by mouth intake and is nauseated time, continues to have abdominal pain, patient denies fever or chills or diarrhea or hemoptysis or hematemesis or melena or hematochezia or chest pain or SOB or numbness. Exam - Constitutional Vitals: Period Temp Pulse Resp BP Sys/Mccarthy Pulse Ox Last 24 Hr 97.8 F-98.2 F 65-72 16-18 115-137/64-87 95-96 Exam: Gen: a&ox3, NAD Neck: no JVD, no LN enlargement Lung: BS reduced at lung bases, cta abd: soft, epigastric tenderness radiate to back and RUQ pain, no guarding/ rebound. heart: s1s2, regular rythm skin: warm, dry, no jaundice, no tremors Psych: cooperative HEENT: PERRL Results - Labs CBC & BMP: 07/04/16 05:23 07/04/16 05:23 Specialty Discharge - Follow Up or Referrals - Discharge Medications No Action Citalopram [CeleXA] 20 mg PO BEDTIME Gabapentin 1 tablet PO TID Zolpidem [Ambien] 1 tablet PO BEDTIME Hyoscyamine Tab [Levsin Tab] 0.125 mg PO QID PRN #30 tablet PRN Reason: stomach cramps Topiramate [Topamax] 50 mg PO BID Metoclopramide Liquid [Reglan Liquid] 10 mg PO ACHS #100 udcup Pantoprazole Tab [Protonix Tab] 40 mg PO BID #60 tablet
[2016-07-04 13:36] LABS: % Iron Saturation 18.2 % (18-50); Ferritin 270.1 ng/ml (8-252)
[2016-07-04] MEDS: traZODone 50 MG TABLET PO PRN (21:12)
[2016-07-04] MEDS: CITALOPRAM 20 MG TABLET PO SCH (21:12)
[2016-07-04] MEDS: ZALEPLON 5 MG CAPSULE PO SCH (21:13)
[2016-07-05] MEDS: ERYTHROMYCIN INJ 250 MG in SODIUM CHLORIDE 0.9% 100 ML IV SCH ×4 (03:25→20:58)
[2016-07-05] MEDS: ONDANSETRON 4 MG/2 ML VIAL IV PRN ×4 (03:39→20:58)
[2016-07-05] MEDS: HYDROmorphone 2 MG/1 ML VIAL IV PRN (03:40)
[2016-07-05] MEDS: SODIUM CHLORIDE 0.9% 1,000 ML IV SCH ×3 (06:54→16:53)
[2016-07-05 06:57] LABS: Alanine Aminotransferase 24 U/L (13-56); Albumin 3.1 G/DL (3.4-5.0); Alkaline Phosphatase 42 U/L (45-117); Aspartate Amino Transferase 14 U/L (0-37); Bilirubin,Direct < 0.1 MG/DL (0.0-0.20); Bilirubin,Indirect 1.1 MG/DL (0.0-1.0); Total Protein 6.1 G/DL (6.4-8.3)
[2016-07-05] MEDS: PANTOPRAZOLE 40 MG VIAL IV SCH ×2 (09:05→20:48)
[2016-07-05] MEDS: TOPIRAMATE 25 MG TABLET PO SCH ×2 (09:05→20:49)
[2016-07-05] MEDS: GABAPENTIN 300 MG CAPSULE PO SCH ×3 (09:06→20:49)
--- NOTE | 2016-07-05 09:09 | Gastrointestinal Progress Note ---
Assessment and Plan (1) Gastritis and duodenitis Status: Acute Assessment and plan: This was documented on previous upper endoscopy back in August 2015, I don't think that with Protonix being given twice a day that she necessarily needs to have a repeat done to see if still present. She is being covered adequately for acid-related phenomenon with this medical regimen. 07/04/16-- patient is under treatment with Protonix 40 mg IV twice a day which should be suppressing her acidity for more than 20 out of 24 hours per day. 07/05/16-- the patient's lipase levels once again confirmed to be normal. Her gastritis and duodenitis is being suppressed with the Protonix. Current Visit: Yes (2) Acute pancreatitis Status: Acute Assessment and plan: Clinical symptoms can lag behind the biochemical markers for pancreatitis, the patient states that she still has 8 out of 10 abdominal pain. We will go ahead and make her nothing by mouth and hold off on further feedings for the present time. Her lipase level is in the normal range at this time. Again, we are not quite sure why she got the pancreatitis. Biochemically, she is mildly dehydrated with renal insufficiency. 07/04/16--continue with high fluid rate rehydration. Nothing to eat today until her symptoms start to raul inserting the abdominal tenderness. We may end up having to be CT her belly to make sure she is not developing a pancreatic pseudocyst if pain continues, unabated. 07/05/16-- at this point the patient has been on a high level fluid replacement for several days with a normal lipase level of 245 today. I am concerned that her pain is not secondary to pancreatitis as had been originally thought but is in fact a side effect of her gastroparesis which is being worsened by the narcotic use. We need to discontinue narcotics at this point try her on Tylenol and see if the erythromycin will have a chance to empty his stomach appropriately which should help alleviate her pain. She does not like the idea of stopping her narcotics however understands the necessity for this. She can use Tylenol for her pain and this was written. Current Visit: No (3) Abdominal pain, epigastric Status: Acute Assessment and plan: See above. Current Visit: No (4) History of diabetic gastroparesis Status: Acute Assessment and plan: Patient does have gastroparesis as noted from the bezoar in her stomach seen during her upper endoscopy back in August 2015. She has been taking Reglan as an outpatient and may have developed some tachyphylactic cyst to this medication. We will try and switch her over to erythromycin at this point to see if that works better. Unfortunately she remains on narcotics due to her pancreatitis-- hopefully we can wean these soon, as her stomach improves. If we are going to treat her like she is scheduled pancreatitis we need to make her nothing by mouth. 07/04/16-- She is getting treated with Dilaudid, and states that she is still requiring this. I switched her over from Reglan which she has been on for some time to erythromycin which has improved motility but also has a pro--nausea and effect which may also be mildly irritating her. At present time the patient remains nothing by mouth. We do not want to advance her diet until she feels ready for this. 07/05/16-- as noted above I believe this is the true cause of patient's pain and we need to treat this aggressively by discontinuing her narcotic use at this point. She is somewhat hungry, will monitor her for withdrawal-- it should not occur with such short-term use. We probably can consider cutting back on her IV fluid rate as well. Current Visit: Yes Gastroenterology - PN: Subj Interval history: Pain is unfortunately still an 8 out of 10 in intensity, the patient has some hunger, still feels bloated with epigastric tenderness. Lipase level was remeasured today and found to be 245 which is within normal limits, of note she had 240 lipase on 07/01/16, 4 days ago. Exam (Progress Note) - Constitutional Vitals: Period Temp Pulse Resp BP Sys/Mccarthy Pulse Ox Last 24 Hr 97.4 F-98.4 F 62-81 13-18 110-155/65-80 95-100 General appearance: mild distress - Eye Eye exam: Present: EOMI Pupils: Present: NASEEM - ENT ENT exam: Present: normal exam - Respiratory Respiratory exam: Present: clear to auscultation bilaterally - Cardiovascular Cardiovascular exam: Present: regular rate and rhythm - GI/Abdominal GI/Abdominal exam: Present: normal bowel sounds, tenderness (right upper quadrant and epigastric tenderness, subjective), soft. Absent: rebound - Extremities Exam Extremities exam: Present: normal inspection. Absent: edema - Neurological Exam Neurological exam: Present: alert, oriented X3 - Psychiatric Psychiatric exam: Present: normal affect, normal mood - Skin Skin exam: Present: warm Results - Labs CBC & BMP: 07/04/16 05:23 07/04/16 05:23
[2016-07-05] MEDS: ACETAMINOPHEN 325 MG TABLET PO PRN (09:52)
--- NOTE | 2016-07-05 11:39 | Hospitalist Progress Note ---
Assessment and Plan (1) Abdominal pain Problem details: likely multifactorial due to problems lised below Status: Acute Assessment and plan: Of opioid meds by GI service following. will consider NGT TF? Current Visit: No Qualifiers: Abdominal location: generalized Qualified Code(s): R10.84 - Generalized abdominal pain (2) Gastritis and duodenitis Status: Acute Assessment and plan: PPI. per GI Current Visit: Yes (3) Acute pancreatitis Status: Acute Assessment and plan: possibly early pancreatitis per GI. c/w IVF/antiemetic/IVF. Current Visit: No (4) History of diabetic gastroparesis Status: Acute Assessment and plan: GI service following w recommended meds Current Visit: Yes (5) KRISTA (acute kidney injury) Status: Acute Assessment and plan: serum Cr 1.3, monitor Cr. FeN ~1.4 % Current Visit: Yes (6) Microcytic hypochromic anemia Problem details: iron defiency anemia. Status: Acute Assessment and plan: Iron level low. FOBT pending. start iron pills Current Visit: Yes Hospitalist: Subjective Interval history: Patient upset today that there narcotic pain medication has been stopped by GI service and stating she is in pain. Patient still nothing by mouth. Patient is denies chest pain or SOB or fever or chills. No diarrhea or melena or hematemesis or hemoptysis or hematochezia. Patient nauseated at times but no vomiting overnight. Exam - Constitutional Vitals: Period Temp Pulse Resp BP Sys/Mccarthy Pulse Ox Last 24 Hr 97.4 F-98.4 F 60-81 13-18 110-155/65-80 95-100 Exam: Gen: a&ox3, NAD Neck: no JVD, no LN enlargement Lung: BS reduced at lung bases, cta abd: soft, epigastric tenderness radiate to back and RUQ pain, no guarding/ rebound. heart: s1s2, regular rythm skin: warm, dry, no jaundice, no tremors Psych: cooperative HEENT: PERRL Results - Labs CBC & BMP: 07/04/16 05:23 07/04/16 05:23
[2016-07-05 12:52] LABS: Basophils % 0.4 % (0.0-0.8); Eosinophils # 0.2 10*3/uL (0.0-0.87); Hematocrit 33.2 VOL% (35.7-47.0); Hemoglobin 11.4 GM/DL (12.0-16.0); Immature Granulocytes % 0.6 %; Immature Granulocytes Absolute 0.04 #; Lymphocytes # 2.3 10*3/uL (1.4-4.0); Lymphocytes % 32.8 % (21.3-54.2); Mean Corpuscular HGB Conc 34.3 GM/DL (32-36); Mean Corpuscular Hemoglobin 26 PG (27-34); Mean Corpuscular Volume 76.1 FL (87-102); Mean Platelet Volume 10.5 FL (9.6-12.0); Monocytes # 0.4 10*3/uL (0.11-0.8); Monocytes % 5.7 % (1.7-12.7); Neutrophils # 4.1 10*3/uL (1.4-7.4); Neutrophils % 57.5 % (38.7-73.9); Platelet Count 267 10*3/uL (130-400); Red Blood Count 4.36 10*6/uL (3.8-5.5); Red Cell Distribution Width 13.6 % (9.3-17.3); White Blood Count 7.1 10*3/uL (4.5-13.71)
[2016-07-05 13:16] LABS: Osmolality,Calculated 286.6 MOS/KG (273-304); Potassium 3.5 MMOL/L (3.5-5.1)
[2016-07-05] MEDS: FERROUS SULFATE 325 MG TABLET PO SCH ×2 (15:19→20:49)
[2016-07-05] MEDS: CITALOPRAM 20 MG TABLET PO SCH (20:49)
[2016-07-05] MEDS: ZALEPLON 5 MG CAPSULE PO SCH (20:49)
[2016-07-05] MEDS: traZODone 50 MG TABLET PO PRN (21:08)
[2016-07-06] MEDS: SODIUM CHLORIDE 0.9% 1,000 ML IV SCH ×3 (03:06→08:56)
[2016-07-06] MEDS: ERYTHROMYCIN INJ 250 MG in SODIUM CHLORIDE 0.9% 100 ML IV SCH ×2 (04:40→09:28)
[2016-07-06] MEDS: ONDANSETRON 4 MG/2 ML VIAL IV PRN (04:42)
[2016-07-06 06:39] LABS: Basophils % 0.4 % (0.0-0.8); Eosinophils # 0.2 10*3/uL (0.0-0.87); Eosinophils % 3.5 % (0.00-10.9); Hematocrit 30.3 VOL% (35.7-47.0); Hemoglobin 10.2 GM/DL (12.0-16.0); Immature Granulocytes % 0.4 %; Immature Granulocytes Absolute 0.03 #; Lymphocytes # 3.5 10*3/uL (1.4-4.0); Lymphocytes % 51.5 % (21.3-54.2); Mean Corpuscular HGB Conc 33.7 GM/DL (32-36); Mean Corpuscular Hemoglobin 26 PG (27-34); Mean Corpuscular Volume 78.5 FL (87-102); Mean Platelet Volume 10.8 FL (9.6-12.0); Monocytes # 0.5 10*3/uL (0.11-0.8); Monocytes % 7.9 % (1.7-12.7); Neutrophils # 2.5 10*3/uL (1.4-7.4); Neutrophils % 36.3 % (38.7-73.9); Platelet Count 250 10*3/uL (130-400); Red Blood Count 3.86 10*6/uL (3.8-5.5); White Blood Count 6.8 10*3/uL (4.5-13.71)
[2016-07-06 07:05] LABS: Band Neutrophils 1 % (0-10); Eosinophils 4 % (0-10); Hypochromasia Slight; Lymphocytes 44 % (20-55); Microcytosis 1+; Platelet Estimate Adequate; Segmented Neutrophils 48 % (50-85); Total Cells Counted 100
[2016-07-06 07:15] LABS: Calcium 7.5 MG/DL (8.5-10.1); Osmolality,Calculated 289.3 MOS/KG (273-304); Potassium 3.6 MMOL/L (3.5-5.1)
[2016-07-06] MEDS: TOPIRAMATE 25 MG TABLET PO SCH ×2 (08:59→20:35)
[2016-07-06] MEDS: SODIUM CHLORIDE 0.45% 1,000 ML IV SCH ×2 (08:59→23:58)
[2016-07-06] MEDS: FERROUS SULFATE 325 MG TABLET PO SCH ×3 (08:59→20:35)
[2016-07-06] MEDS: GABAPENTIN 300 MG CAPSULE PO SCH ×3 (08:59→20:35)
[2016-07-06] MEDS: PANTOPRAZOLE 40 MG VIAL IV SCH (08:59)
--- NOTE | 2016-07-06 13:16 | Gastrointestinal Progress Note ---
Assessment and Plan (1) Gastritis and duodenitis Status: Acute Assessment and plan: This was documented on previous upper endoscopy back in August 2015, I don't think that with Protonix being given twice a day that she necessarily needs to have a repeat done to see if still present. She is being covered adequately for acid-related phenomenon with this medical regimen. 07/04/16-- patient is under treatment with Protonix 40 mg IV twice a day which should be suppressing her acidity for more than 20 out of 24 hours per day. 07/05/16-- the patient's lipase levels once again confirmed to be normal. Her gastritis and duodenitis is being suppressed with the Protonix. 07/06/16-- the patient is tolerating clear liquids fairly well at this point. I think we need to make sure that she is tolerating a low-fat diet which she should maintain for the next 2 weeks starting tomorrow morning. I switched her over to oral Protonix and we'll write her a prescription for this as well as erythromycin that she can take home with her upon discharge, potentially tomorrow. Current Visit: Yes (2) Acute pancreatitis Status: Acute Assessment and plan: Clinical symptoms can lag behind the biochemical markers for pancreatitis, the patient states that she still has 8 out of 10 abdominal pain. We will go ahead and make her nothing by mouth and hold off on further feedings for the present time. Her lipase level is in the normal range at this time. Again, we are not quite sure why she got the pancreatitis. Biochemically, she is mildly dehydrated with renal insufficiency. 07/04/16--continue with high fluid rate rehydration. Nothing to eat today until her symptoms start to raul inserting the abdominal tenderness. We may end up having to be CT her belly to make sure she is not developing a pancreatic pseudocyst if pain continues, unabated. 07/05/16-- at this point the patient has been on a high level fluid replacement for several days with a normal lipase level of 245 today. I am concerned that her pain is not secondary to pancreatitis as had been originally thought but is in fact a side effect of her gastroparesis which is being worsened by the narcotic use. We need to discontinue narcotics at this point try her on Tylenol and see if the erythromycin will have a chance to empty his stomach appropriately which should help alleviate her pain. She does not like the idea of stopping her narcotics however understands the necessity for this. She can use Tylenol for her pain and this was written. 07/06/16-- the patient is asked for something to help her with her anxiety and we can certainly provide a small dose of Xanax. I will write for 0.5 mg by mouth 3 times a day, will leave that up to the hospitalist to see if they want to write a prescription for this upon discharge. Overall she seems much better. Pain is now significantly improved. We will need to see how she does on oral Protonix as well as oral erythromycin. If she should return to the hospital again in the near future would strongly suggest getting a triglyceride level at that time. Current Visit: No (3) Abdominal pain, epigastric Status: Acute Assessment and plan: See above. Current Visit: No (4) History of diabetic gastroparesis Status: Acute Assessment and plan: Patient does have gastroparesis as noted from the bezoar in her stomach seen during her upper endoscopy back in August 2015. She has been taking Reglan as an outpatient and may have developed some tachyphylactic cyst to this medication. We will try and switch her over to erythromycin at this point to see if that works better. Unfortunately she remains on narcotics due to her pancreatitis-- hopefully we can wean these soon, as her stomach improves. If we are going to treat her like she is scheduled pancreatitis we need to make her nothing by mouth. 07/04/16-- She is getting treated with Dilaudid, and states that she is still requiring this. I switched her over from Reglan which she has been on for some time to erythromycin which has improved motility but also has a pro--nausea and effect which may also be mildly irritating her. At present time the patient remains nothing by mouth. We do not want to advance her diet until she feels ready for this. 07/05/16-- as noted above I believe this is the true cause of patient's pain and we need to treat this aggressively by discontinuing her narcotic use at this point. She is somewhat hungry, will monitor her for withdrawal-- it should not occur with such short-term use. We probably can consider cutting back on her IV fluid rate as well. 07/06/16--prescription written for the erythromycin to be used as an outpatient. Patient may find this very expensive however and she may have to try and get this from a contained pharmacy if she cannot afford it. The patient should also pickup her Protonix 40 mg twice daily for past effect. Anticipate discharge tomorrow if she is doing as well as yet today. Current Visit: Yes Gastroenterology - PN: Subj Interval history: Starting on clear liquids which she is tolerating quite well. It is anticipated that she'll probably be discharged tomorrow she can tolerate a low- fat diet for breakfast, We'll decrease her IV fluids (150 down to 75 mL per hour) at this point and switch her over to by mouth medications to see how these will be tolerated. Exam (Progress Note) - Constitutional Vitals: Period Temp Pulse Resp BP Sys/Mccarthy Pulse Ox Last 24 Hr 97.3 F-98.8 F 61-75 18-20 96-165/53-79 95-99 - Head Head exam: Present: normocephalic, atraumatic - Eye Eye exam: Present: conjunctival injection Pupils: Present: NASEEM - Neck Neck exam: Present: normal inspection - Respiratory Respiratory exam: Present: clear to auscultation bilaterally. Absent: rhonchi, stridor, wheezes - Cardiovascular Cardiovascular exam: Present: regular rate and rhythm - GI/Abdominal GI/Abdominal exam: Present: normal bowel sounds, distended, tenderness, soft. Absent: guarding - Extremities Exam Extremities exam: Absent: edema - Neurological Exam Neurological exam: Present: alert, oriented X3, CN II-XII intact. Absent: motor sensory deficit - Psychiatric Psychiatric exam: Present: normal affect, normal mood - Skin Skin exam: Present: warm Results - Labs CBC & BMP: 07/06/16 05:44 07/06/16 05:44
[2016-07-06] MEDS: ALPRAZolam 0.5 MG TABLET PO PRN ×2 (15:05→20:35)
[2016-07-06] MEDS ORDERED: PANTOPRAZOLE 40 MG TABLET PO ONE (17:12)
[2016-07-06] MEDS: ERYTHROMYCIN BASE 250 MG TABLET PO SCH ×2 (17:21→20:35)
[2016-07-06] MEDS: PANTOPRAZOLE 40 MG TABLET PO SCH (19:01)
--- NOTE | 2016-07-06 19:50 | Hospitalist Progress Note ---
Assessment and Plan - Time spent with patient Time spent with patient: Greater than 30 minutes (1) Gastritis and duodenitis Status: Acute Assessment and plan: Continue PPI. Current Visit: Yes (2) History of diabetic gastroparesis Status: Acute Assessment and plan: Start clears, advance as tolerated. Current Visit: Yes (3) Abdominal pain Problem details: likely multifactorial due to problems lised below Status: Acute Assessment and plan: Source is unclear. Current Visit: No Qualifiers: Abdominal location: generalized Qualified Code(s): R10.84 - Generalized abdominal pain Hospitalist: Subjective Interval history: No overnight events, patient has no complaints. Exam - Constitutional Vitals: Period Temp Pulse Resp BP Sys/Mccarthy Pulse Ox Last 24 Hr 96.5 F-98.8 F 61-75 18-20 96-123/53-71 95-99 General appearance: no acute distress - Head Head exam: Present: normocephalic, atraumatic - Eye Eye exam: Present: EOMI Pupils: Present: NASEEM - ENT ENT exam: Present: normal exam - Neck Neck exam: Present: normal inspection - Respiratory Respiratory exam: Present: clear to auscultation bilaterally. Absent: rhonchi, wheezes - Cardiovascular Cardiovascular exam: Present: regular rate and rhythm. Absent: gallop, rubs, systolic murmur - GI/Abdominal GI/Abdominal exam: Present: normal bowel sounds, soft. Absent: distended, firm , guarding, tenderness, rebound - Extremities Exam Extremities exam: Present: normal inspection. Absent: calf tenderness, edema Results - Labs CBC & BMP: 07/06/16 05:44 07/06/16 05:44 Lab Results: I have reviewed the past 24 hour labs
[2016-07-06] MEDS: CITALOPRAM 20 MG TABLET PO SCH (20:35)
[2016-07-06] MEDS: ZALEPLON 5 MG CAPSULE PO SCH (20:35)
[2016-07-06] MEDS: traZODone 50 MG TABLET PO PRN (20:35)
[2016-07-07] MEDS: ONDANSETRON 4 MG/2 ML VIAL IV PRN ×2 (02:48→08:39)
[2016-07-07] MEDS: FERROUS SULFATE 325 MG TABLET PO SCH ×3 (08:38→21:08)
[2016-07-07] MEDS: ALPRAZolam 0.5 MG TABLET PO PRN ×2 (08:38→21:09)
[2016-07-07] MEDS: TOPIRAMATE 25 MG TABLET PO SCH ×2 (08:38→21:09)
[2016-07-07] MEDS: PANTOPRAZOLE 40 MG TABLET PO SCH ×2 (08:38→21:08)
[2016-07-07] MEDS: GABAPENTIN 300 MG CAPSULE PO SCH ×3 (08:38→21:09)
[2016-07-07] MEDS: ERYTHROMYCIN BASE 250 MG TABLET PO SCH ×4 (10:07→21:11)
--- NOTE | 2016-07-07 10:27 | Gastrointestinal Progress Note ---
Assessment and Plan (1) Gastritis and duodenitis Status: Acute Assessment and plan: This was documented on previous upper endoscopy back in August 2015, I don't think that with Protonix being given twice a day that she necessarily needs to have a repeat done to see if still present. She is being covered adequately for acid-related phenomenon with this medical regimen. 07/04/16-- patient is under treatment with Protonix 40 mg IV twice a day which should be suppressing her acidity for more than 20 out of 24 hours per day. 07/05/16-- the patient's lipase levels once again confirmed to be normal. Her gastritis and duodenitis is being suppressed with the Protonix. 07/06/16-- the patient is tolerating clear liquids fairly well at this point. I think we need to make sure that she is tolerating a low-fat diet which she should maintain for the next 2 weeks starting tomorrow morning. I switched her over to oral Protonix and we'll write her a prescription for this as well as erythromycin that she can take home with her upon discharge, potentially tomorrow. 07/07/16--patient has slight increase in pain with the intake of low-fat diet this morning. I have reminded her that if she goes home today she can always switch over to clear liquid diet until she is pain-free. She is on oral Protonix and prescription has been written for this as well as the erythromycin. Erythromycin can be expensive is an outpatient and we may need to get her potential [place] pharmacy if she has problems getting it paid for. Current Visit: Yes (2) Acute pancreatitis Status: Acute Assessment and plan: Clinical symptoms can lag behind the biochemical markers for pancreatitis, the patient states that she still has 8 out of 10 abdominal pain. We will go ahead and make her nothing by mouth and hold off on further feedings for the present time. Her lipase level is in the normal range at this time. Again, we are not quite sure why she got the pancreatitis. Biochemically, she is mildly dehydrated with renal insufficiency. 07/04/16--continue with high fluid rate rehydration. Nothing to eat today until her symptoms start to raul inserting the abdominal tenderness. We may end up having to be CT her belly to make sure she is not developing a pancreatic pseudocyst if pain continues, unabated. 07/05/16-- at this point the patient has been on a high level fluid replacement for several days with a normal lipase level of 245 today. I am concerned that her pain is not secondary to pancreatitis as had been originally thought but is in fact a side effect of her gastroparesis which is being worsened by the narcotic use. We need to discontinue narcotics at this point try her on Tylenol and see if the erythromycin will have a chance to empty his stomach appropriately which should help alleviate her pain. She does not like the idea of stopping her narcotics however understands the necessity for this. She can use Tylenol for her pain and this was written. 07/06/16-- the patient is asked for something to help her with her anxiety and we can certainly provide a small dose of Xanax. I will write for 0.5 mg by mouth 3 times a day, will leave that up to the hospitalist to see if they want to write a prescription for this upon discharge. Overall she seems much better. Pain is now significantly improved. We will need to see how she does on oral Protonix as well as oral erythromycin. If she should return to the hospital again in the near future would strongly suggest getting a triglyceride level at that time. 07/07/16-- the patient can be discharged from the hospital my opinion at this time. She should maintain herself on a low-fat diet for the next 2 weeks. She can follow-up with me as needed in the future. She should be readmitted with worsening pancreatitis with strongly suggest getting a triglyceride level that point. I will leave that up for the hospitalist as to whether or not he was to get this patient's Xanax going out the door. She is anxious and this may help her to stay as an outpatient longer. Current Visit: No (3) Abdominal pain, epigastric Status: Acute Assessment and plan: See above. Current Visit: No (4) History of diabetic gastroparesis Status: Acute Assessment and plan: Patient does have gastroparesis as noted from the bezoar in her stomach seen during her upper endoscopy back in August 2015. She has been taking Reglan as an outpatient and may have developed some tachyphylactic cyst to this medication. We will try and switch her over to erythromycin at this point to see if that works better. Unfortunately she remains on narcotics due to her pancreatitis-- hopefully we can wean these soon, as her stomach improves. If we are going to treat her like she is scheduled pancreatitis we need to make her nothing by mouth. 07/04/16-- She is getting treated with Dilaudid, and states that she is still requiring this. I switched her over from Reglan which she has been on for some time to erythromycin which has improved motility but also has a pro--nausea and effect which may also be mildly irritating her. At present time the patient remains nothing by mouth. We do not want to advance her diet until she feels ready for this. 07/05/16-- as noted above I believe this is the true cause of patient's pain and we need to treat this aggressively by discontinuing her narcotic use at this point. She is somewhat hungry, will monitor her for withdrawal-- it should not occur with such short-term use. We probably can consider cutting back on her IV fluid rate as well. 07/06/16--prescription written for the erythromycin to be used as an outpatient. Patient may find this very expensive however and she may have to try and get this from a [place] pharmacy if she cannot afford it. The patient should also pickup her Protonix 40 mg twice daily for past effect. Anticipate discharge tomorrow if she is doing as well as yet today. 07/07/16-- the patient is ready to leave today. See above. Prescriptions are written for the chart. Current Visit: Yes Gastroenterology - PN: Subj Interval history: She states that pain is decreased from yesterday, tolerable at this point and she wishes to leave the hospital. She is on no pain medications due to her gastroparesis but has asked for some Xanax to help with anxiety. If her hospitalist feels like this will be helpful for the patient he can write some-- this is outside my purview as a event sales assistant. Lipase potentially slight increase as is expected when she is transitioning back to solids. Exam (Progress Note) - Constitutional Vitals: Period Temp Pulse Resp BP Sys/Mccarthy Pulse Ox Last 24 Hr 96.5 F-98.9 F 63-75 16-20 103-137/58-80 98-100 - Head Head exam: Present: normal inspection - Eye Eye exam: Present: EOMI Pupils: Present: NASEEM - Respiratory Respiratory exam: Present: clear to auscultation bilaterally - GI/Abdominal GI/Abdominal exam: Present: normal bowel sounds, distended, tenderness. Absent : soft - Extremities Exam Extremities exam: Absent: edema - Neurological Exam Neurological exam: Present: alert, oriented X3 - Psychiatric Psychiatric exam: Present: normal affect, normal mood - Skin Skin exam: Present: warm Results - Labs CBC & BMP: 07/06/16 05:44 07/06/16 05:44
[2016-07-07] MEDS: SODIUM CHLORIDE 0.45% 1,000 ML IV SCH (12:46)
--- NOTE | 2016-07-07 14:16 | Hospitalist Progress Note ---
Assessment and Plan - Time spent with patient Time spent with patient: Greater than 30 minutes (1) Gastritis and duodenitis Status: Acute Assessment and plan: Continue PPI. Current Visit: Yes (2) History of diabetic gastroparesis Status: Acute Assessment and plan: Tolerated diet. Current Visit: Yes (3) Abdominal pain Problem details: likely multifactorial due to problems lised below Status: Acute Assessment and plan: Source is unclear. Improved. Current Visit: No Qualifiers: Abdominal location: generalized Qualified Code(s): R10.84 - Generalized abdominal pain Hospitalist: Subjective Interval history: No complaints currently, she is eating her meal with no issues. Exam - Constitutional Vitals: Period Temp Pulse Resp BP Sys/Mccarthy Pulse Ox Last 24 Hr 96.5 F-98.9 F 63-83 16-20 103-137/58-80 98-100 General appearance: no acute distress - Head Head exam: Present: normocephalic, atraumatic - Eye Eye exam: Present: EOMI Pupils: Present: NASEEM - ENT ENT exam: Present: normal exam - Neck Neck exam: Present: normal inspection - Respiratory Respiratory exam: Present: clear to auscultation bilaterally. Absent: rhonchi, wheezes - Cardiovascular Cardiovascular exam: Present: regular rate and rhythm. Absent: gallop, rubs, systolic murmur - GI/Abdominal GI/Abdominal exam: Present: normal bowel sounds, soft. Absent: distended, firm , guarding, tenderness, rebound - Extremities Exam Extremities exam: Present: normal inspection. Absent: calf tenderness, edema Results - Labs CBC & BMP: 07/06/16 05:44 07/06/16 05:44 Lab Results: I have reviewed the past 24 hour labs
--- NOTE | 2016-07-07 14:20 | Discharge Summary ---
Hospital Course - Hospital Course Hospital Course: Gastroparesis: Ms. Holden was admitted with abdominal pain. CT of the abdomen/ pelvis was unremarkable. Lipase was negative. She was evaluated by GI and it was felt this is related to her gastroparesis. She was initiated on erythromycin , and administered narcotics and benzodiapenes for pain relief however by discharge the narcotics were weaned off. Diet was advanced as tolerated, and she will follow up with her PCP. - Time spent with patient Time with patient DS: Greater than 30 minutes Diagnosis - Discharge Diagnosis (1) Gastritis and duodenitis Status: Acute (2) History of diabetic gastroparesis Status: Acute (3) Abdominal pain Status: Acute Discharge Plan - Discharge Data Disposition: Disch To Home/Self Care Condition at Discharge: Stable Discharge Diet: advance to your usual diet - Discharge Medications New ALPRAZolam [Xanax] 0.5 mg PO TID PRN #15 tablet PRN Reason: Anxiety Ferrous Sulfate Tab [Feosol Original Tab] 325 mg PO TID #90 tablet Continue Citalopram [CeleXA] 20 mg PO BEDTIME Gabapentin 1 tablet PO TID Zolpidem [Ambien] 1 tablet PO BEDTIME Hyoscyamine Tab [Levsin Tab] 0.125 mg PO QID PRN #30 tablet PRN Reason: stomach cramps Topiramate [Topamax] 50 mg PO BID Metoclopramide Liquid [Reglan Liquid] 10 mg PO ACHS #100 udcup Pantoprazole Tab [Protonix Tab] 40 mg PO BID #60 tablet - Follow Up or Referral - Forms/Instructions Exam - Constitutional Vitals: Period Temp Pulse Resp BP Sys/Mccarthy Pulse Ox Last 24 Hr 96.5 F-98.9 F 63-83 16-20 103-137/58-80 98-100 General appearance: normal weight, no acute distress - Head Head exam: Present: normal inspection, normocephalic, atraumatic - Eye Eye exam: Present: EOMI Pupils: Present: NASEEM - ENT ENT exam: Present: normal exam - Neck Neck exam: Present: normal inspection - Respiratory Respiratory exam: Present: clear to auscultation bilaterally - Cardiovascular Cardiovascular exam: Present: regular rate and rhythm - GI/Abdominal GI/Abdominal exam: Present: normal bowel sounds. Absent: ascites, distended, firm, guarding, hypoactive bowel sounds, tenderness - Extremities Exam Extremities exam: Present: normal inspection Discharge Results Procedures and tests throughout hospitalization: Pending Orders 07/04/16 13:13 Occult Blood, Stool Routine Labs on day of discharge: Labs from last 24 hours 07/07/16 05:47 Lipase 406.0 H D DS: Provider Date of admission: 07/03/16 15:01 Primary care physician: . No PCP Attending physician on admission: Rowena Thompson MD Discharging clinician: Yumiko Yang MD Expected date of discharge: 07/07/16
[2016-07-07] MEDS: ZALEPLON 5 MG CAPSULE PO SCH (21:08)
[2016-07-07] MEDS: CITALOPRAM 20 MG TABLET PO SCH (21:09)
[2016-07-08 04:58] LABS: Basophils % 0.5 % (0.0-0.8); Eosinophils # 0.2 10*3/uL (0.0-0.87); Eosinophils % 2.9 % (0.00-10.9); Hematocrit 33.3 VOL% (35.7-47.0); Hemoglobin 10.8 GM/DL (12.0-16.0); Immature Granulocytes % 0.9 %; Immature Granulocytes Absolute 0.07 #; Lymphocytes # 3.8 10*3/uL (1.4-4.0); Lymphocytes % 46.1 % (21.3-54.2); Mean Corpuscular HGB Conc 32.4 GM/DL (32-36); Mean Corpuscular Hemoglobin 26 PG (27-34); Mean Corpuscular Volume 80.4 FL (87-102); Mean Platelet Volume 12.2 FL (9.6-12.0); Monocytes # 0.6 10*3/uL (0.11-0.8); Monocytes % 7.1 % (1.7-12.7); Neutrophils # 3.5 10*3/uL (1.4-7.4); Neutrophils % 42.5 % (38.7-73.9); Platelet Count 224 10*3/uL (130-400); Red Blood Count 4.14 10*6/uL (3.8-5.5); Red Cell Distribution Width 14.7 % (9.3-17.3); White Blood Count 8.2 10*3/uL (4.5-13.71)
[2016-07-08 05:25] LABS: Calcium 8.3 MG/DL (8.5-10.1); Osmolality,Calculated 289.3 MOS/KG (273-304)
--- NOTE | 2016-07-08 08:51 | XRay Report ---
History is abdominal pain no bowel movement for 6 days Comparison 12/08/2015 Mild air scattered in the bowel without small bowel dilatation or organomegaly seen Clips present in the right upper abdomen and right lateral abdomen Numerous pelvic phleboliths again seen Impression: Nonspecific bowel gas pattern PROCEDURE INTERPRETED AT [facility] DEPARTMENT OF RADIOLOGY Final Report Signed by: Dr. Kimberly Cardenas
[2016-07-08] MEDS: PANTOPRAZOLE 40 MG TABLET PO SCH ×2 (09:43→20:05)
[2016-07-08] MEDS: FERROUS SULFATE 325 MG TABLET PO SCH ×3 (09:44→20:05)
[2016-07-08] MEDS: TOPIRAMATE 25 MG TABLET PO SCH ×2 (09:44→20:05)
[2016-07-08] MEDS: ALPRAZolam 0.5 MG TABLET PO PRN ×2 (09:44→20:05)
[2016-07-08] MEDS: GABAPENTIN 300 MG CAPSULE PO SCH ×3 (09:44→20:05)
[2016-07-08] MEDS: ERYTHROMYCIN BASE 250 MG TABLET PO SCH ×4 (09:45→20:05)
[2016-07-08] MEDS: SODIUM CHLORIDE 0.45% 1,000 ML IV SCH ×2 (09:47→16:31)
[2016-07-08] MEDS ORDERED: MAGNESIUM CITRATE 300 ML BOTTLE PO ONE (10:49)
--- NOTE | 2016-07-08 16:16 | Hospitalist Progress Note ---
Assessment and Plan - Time spent with patient Time spent with patient: Greater than 30 minutes (1) Gastritis and duodenitis Status: Acute Assessment and plan: Continue current management. Current Visit: Yes (2) History of diabetic gastroparesis Status: Acute Assessment and plan: Continue current management. Current Visit: Yes (3) Abdominal pain Problem details: likely multifactorial due to problems lised below Status: Acute Assessment and plan: KUB reveals mild distention and nonspecific bowel gas pattern. We'll administer maxillary traits and reassess tomorrow Current Visit: No Qualifiers: Abdominal location: generalized Qualified Code(s): R10.84 - Generalized abdominal pain Hospitalist: Subjective Interval history: Yesterday the patient stated she did not have a bowel movement and discharge was held. She states she passes gas with no problem. Exam - Constitutional Vitals: Period Temp Pulse Resp BP Sys/Mccarthy Pulse Ox Last 24 Hr 97.4 F-98.2 F 67-82 18-18 108-152/62-91 96-100 General appearance: no acute distress - Head Head exam: Present: normocephalic, atraumatic - Eye Eye exam: Present: EOMI Pupils: Present: NASEEM - ENT ENT exam: Present: normal exam - Neck Neck exam: Present: normal inspection - Respiratory Respiratory exam: Present: clear to auscultation bilaterally. Absent: rhonchi, wheezes - Cardiovascular Cardiovascular exam: Present: regular rate and rhythm. Absent: gallop, rubs, systolic murmur - GI/Abdominal GI/Abdominal exam: Present: normal bowel sounds, distended, soft. Absent: firm , guarding, tenderness, rebound - Extremities Exam Extremities exam: Present: normal inspection. Absent: calf tenderness, edema Results - Labs CBC & BMP: 07/08/16 03:53 07/08/16 03:53 Lab Results: I have reviewed the past 24 hour labs Specialty Discharge - Follow Up or Referrals
[2016-07-08] MEDS: CITALOPRAM 20 MG TABLET PO SCH (20:04)
[2016-07-09] MEDS: PANTOPRAZOLE 40 MG TABLET PO SCH ×2 (06:15→08:26)
[2016-07-09] MEDS: GABAPENTIN 300 MG CAPSULE PO SCH ×3 (08:25→20:59)
[2016-07-09] MEDS: TOPIRAMATE 25 MG TABLET PO SCH ×2 (08:26→20:59)
[2016-07-09] MEDS: ERYTHROMYCIN BASE 250 MG TABLET PO SCH ×3 (08:26→16:51)
[2016-07-09] MEDS: ALPRAZolam 0.5 MG TABLET PO PRN ×2 (08:26→21:01)
[2016-07-09] MEDS: FERROUS SULFATE 325 MG TABLET PO SCH ×3 (08:28→20:59)
--- NOTE | 2016-07-09 09:30 | XRay Report ---
History is nausea vomiting diarrhea and pancreatitis Comparison 07/08/2016 Air-filled loops of small bowel measure up to 2.3 CM Clips present in the right upper quadrant and right lateral abdomen Mild air is scattered in the large bowel Air-filled loops of small bowel are slightly worsened in the interval Numerous pelvic phleboliths again seen Impression: Mild ileus PROCEDURE INTERPRETED AT [facility] DEPARTMENT OF RADIOLOGY Final Report Signed by: Dr. Kimberly Cardenas
[2016-07-09] MEDS ORDERED: PROMETHAZINE 25 MG/1 ML VIAL IM PRN ×2 (13:14→15:23)
--- NOTE | 2016-07-09 14:42 | Hospitalist Progress Note ---
Assessment and Plan - Time spent with patient Time spent with patient: Greater than 30 minutes (1) Ileus Status: Acute Assessment and plan: Keep NPO. Current Visit: Yes (2) History of diabetic gastroparesis Status: Acute Assessment and plan: Continue current management. Current Visit: Yes (3) Gastritis and duodenitis Status: Acute Assessment and plan: Continue current management. Current Visit: Yes Hospitalist: Subjective Interval history: No complaints, she had overnight a greenish diarrhea, foul smelling. Exam - Constitutional Vitals: Period Temp Pulse Resp BP Sys/Mccarthy Pulse Ox Last 24 Hr 97.0 F-98.4 F 76-88 16-80 96-134/61-78 96-99 General appearance: no acute distress - Head Head exam: Present: normocephalic, atraumatic - Eye Eye exam: Present: EOMI Pupils: Present: NASEEM - ENT ENT exam: Present: normal exam - Neck Neck exam: Present: normal inspection - Respiratory Respiratory exam: Present: clear to auscultation bilaterally. Absent: rhonchi, wheezes - Cardiovascular Cardiovascular exam: Present: regular rate and rhythm. Absent: gallop, rubs, systolic murmur - GI/Abdominal GI/Abdominal exam: Present: normal bowel sounds, soft. Absent: distended, firm , guarding, tenderness, rebound - Extremities Exam Extremities exam: Present: normal inspection. Absent: calf tenderness, edema Results - Labs CBC & BMP: 07/08/16 03:53 07/08/16 03:53 Lab Results: I have reviewed the past 24 hour labs Specialty Discharge - Follow Up or Referrals
[2016-07-09] MEDS: SODIUM CHLORIDE 0.45% 1,000 ML IV SCH (18:30)
[2016-07-09] MEDS: CITALOPRAM 20 MG TABLET PO SCH (20:59)
[2016-07-09] MEDS: PANTOPRAZOLE 40 MG VIAL IV SCH (21:01)
[2016-07-10] MEDS: ALPRAZolam 0.5 MG TABLET PO PRN ×2 (03:40→17:06)
[2016-07-10 06:21] LABS: Eosinophils # 0.2 10*3/uL (0.0-0.87); Eosinophils % 2.5 % (0.00-10.9); Hematocrit 34.4 VOL% (35.7-47.0); Hemoglobin 11.3 GM/DL (12.0-16.0); Immature Granulocytes Absolute 0.06 #; Lymphocytes # 0.5 10*3/uL (1.4-4.0); Lymphocytes % 8.6 % (21.3-54.2); Mean Corpuscular HGB Conc 32.8 GM/DL (32-36); Mean Corpuscular Hemoglobin 27 PG (27-34); Mean Corpuscular Volume 81.9 FL (87-102); Mean Platelet Volume 10.8 FL (9.6-12.0); Monocytes # 0.3 10*3/uL (0.11-0.8); Monocytes % 5.2 % (1.7-12.7); Neutrophils # 5.2 10*3/uL (1.4-7.4); Neutrophils % 82.7 % (38.7-73.9); Platelet Count 265 10*3/uL (130-400); White Blood Count 6.3 10*3/uL (4.5-13.71)
[2016-07-10 06:40] LABS: Calcium 8.2 MG/DL (8.5-10.1); Osmolality,Calculated 288.6 MOS/KG (273-304); Potassium 4.2 MMOL/L (3.5-5.1)
[2016-07-10] MEDS: TOPIRAMATE 25 MG TABLET PO SCH ×2 (09:30→20:25)
[2016-07-10] MEDS: GABAPENTIN 300 MG CAPSULE PO SCH ×3 (09:30→20:25)
[2016-07-10] MEDS: FERROUS SULFATE 325 MG TABLET PO SCH ×3 (09:30→20:25)
[2016-07-10] MEDS: ONDANSETRON 4 MG/2 ML VIAL IV PRN ×3 (09:36→21:33)
[2016-07-10] MEDS: PANTOPRAZOLE 40 MG VIAL IV SCH ×2 (09:36→20:25)
--- NOTE | 2016-07-10 14:34 | XRay Report ---
History is ileus Comparison 07/09/2016 Mild air is scattered in the bowel without small bowel dilatation or organomegaly seen. Prior air-filled loops of small bowel have improved in the interval Numerous pelvic phleboliths again seen Clips in the abdomen and pelvis similar on the prior study Impression: Interval resolution of prior mild ileus PROCEDURE INTERPRETED AT [facility] DEPARTMENT OF RADIOLOGY Final Report Signed by: Dr. Kimberly Cardenas
--- NOTE | 2016-07-10 16:33 | Hospitalist Progress Note ---
Assessment and Plan - Time spent with patient Time spent with patient: Greater than 30 minutes (1) Ileus Status: Acute Assessment and plan: Keep NPO. Appears to have resolved we'll begin clear diet tomorrow morning. Current Visit: Yes (2) History of diabetic gastroparesis Status: Acute Assessment and plan: Continue current management. Current Visit: Yes (3) Gastritis and duodenitis Status: Acute Assessment and plan: Continue current management. Current Visit: Yes Hospitalist: Subjective Interval history: Complains of abdominal pain, states she is causing gas and some stool. Exam - Constitutional Vitals: Period Temp Pulse Resp BP Sys/Mccarthy Pulse Ox Last 24 Hr 97.5 F-100.3 F 62-109 18-20 123-152/75-88 97-100 General appearance: no acute distress - Head Head exam: Present: normocephalic, atraumatic - Eye Eye exam: Present: EOMI Pupils: Present: NASEEM - ENT ENT exam: Present: normal exam - Neck Neck exam: Present: normal inspection - Respiratory Respiratory exam: Present: clear to auscultation bilaterally. Absent: rhonchi, wheezes - Cardiovascular Cardiovascular exam: Present: regular rate and rhythm. Absent: gallop, rubs, systolic murmur - GI/Abdominal GI/Abdominal exam: Present: distended, hypoactive bowel sounds, tenderness, soft. Absent: firm, guarding, rebound - Extremities Exam Extremities exam: Present: normal inspection. Absent: calf tenderness, edema Results - Labs CBC & BMP: 07/10/16 05:53 07/10/16 05:52 Lab Results: I have reviewed the past 24 hour labs Specialty Discharge - Follow Up or Referrals
[2016-07-10] MEDS: CITALOPRAM 20 MG TABLET PO SCH (20:25)
[2016-07-11] MEDS: SODIUM CHLORIDE 0.45% 1,000 ML IV SCH ×2 (03:17→10:59)
[2016-07-11] MEDS: ONDANSETRON 4 MG/2 ML VIAL IV PRN ×2 (05:33→12:06)
[2016-07-11] MEDS: GABAPENTIN 300 MG CAPSULE PO SCH ×3 (09:56→20:31)
[2016-07-11] MEDS: FERROUS SULFATE 325 MG TABLET PO SCH ×3 (09:56→20:30)
[2016-07-11] MEDS: ALPRAZolam 0.5 MG TABLET PO PRN ×3 (09:56→23:43)
[2016-07-11] MEDS: TOPIRAMATE 25 MG TABLET PO SCH ×2 (09:56→20:31)
[2016-07-11] MEDS: PANTOPRAZOLE 40 MG VIAL IV SCH ×2 (09:57→20:37)
--- NOTE | 2016-07-11 10:21 | XRay Report ---
Referring Physician: Yumiko Perez MD Exam: XR chest 1V portable Date: July 11, 2016 at 9:21 AM Reason: Fever Comparison: Chest 2 views December 08, 2015 Findings: The cardiac silhouette is normal in size for the portable technique. No focal consolidation, pneumothorax or pleural effusion is identified. No acute osseous process is seen. Impression: No acute cardiopulmonary process is identified. PROCEDURE INTERPRETED AT [facility] DEPARTMENT OF RADIOLOGY Final Report Signed by: Dr. Oksana Aranda
--- NOTE | 2016-07-11 11:28 | Hospitalist Progress Note ---
Assessment and Plan - Time spent with patient Time spent with patient: Greater than 30 minutes (1) Ileus Status: Acute Assessment and plan: Resolved. Repeat KUB. Current Visit: Yes (2) History of diabetic gastroparesis Status: Acute Assessment and plan: Continue current management. Current Visit: Yes (3) Gastritis and duodenitis Status: Acute Assessment and plan: Continue current management. Current Visit: Yes (4) Fever Status: Acute Assessment and plan: Chest Xray unremarkable. UA pending. Blood culture pending. Current Visit: Yes Hospitalist: Subjective Interval history: No overnight events, still reports abdominal pain. Had a fever overnight. Exam - Constitutional Vitals: Period Temp Pulse Resp BP Sys/Mccarthy Pulse Ox Last 24 Hr 97.4 F-100.3 F 66-112 16-20 97-152/58-84 97-100 General appearance: no acute distress - Head Head exam: Present: normocephalic, atraumatic - Eye Eye exam: Present: EOMI Pupils: Present: NASEEM - ENT ENT exam: Present: normal exam - Neck Neck exam: Present: normal inspection - Respiratory Respiratory exam: Present: clear to auscultation bilaterally. Absent: rhonchi, wheezes - Cardiovascular Cardiovascular exam: Present: regular rate and rhythm. Absent: gallop, rubs, systolic murmur - GI/Abdominal GI/Abdominal exam: Present: normal bowel sounds, distended, tenderness, soft. Absent: firm, guarding, rebound - Extremities Exam Extremities exam: Present: normal inspection. Absent: calf tenderness, edema Results - Labs CBC & BMP: 07/10/16 05:53 07/10/16 05:52 Lab Results: I have reviewed the past 24 hour labs Specialty Discharge - Follow Up or Referrals
[2016-07-11 15:05] LABS: Apearance,Urine CLOUDY (Clear); Bacteria,Urine Moderate /HPF (Few); Bilirubin,Urine Negative (Negative); Blood, Urine Small mg/dL (Negative); Glucose,Urine (UA) Negative (Negative); Ketones,Urine Negative (Negative); Nitrite,Urine Negative (Negative); Protein,Urine Negative; RBC,Urine 6 /HPF (0-4); Squamous Epithelial Cell,Urine Occasional /HPF (0-10); Urine Color Yellow (Yellow); Urine Specific Gravity 1.004 (1.001-1.035); Urine Urobilinogen < 2.0 EU/DL (0.2-1.0); WBC,Urine 1 /HPF (0-6)
[2016-07-11] MEDS: ACETAMINOPHEN 325 MG TABLET PO PRN (15:38)
--- NOTE | 2016-07-11 17:34 | XRay Report ---
History is followup ileus Comparison 07/10/2016 Air-filled loops of small bowel measure up to 1.5 CM with mild air in the colon. There has been minimal increase in small bowel gas since prior study. Clips overlie the abdomen and pelvis. Numerous pelvic phleboliths seen No organomegaly seen Impression: Nonspecific bowel gas pattern PROCEDURE INTERPRETED AT [facility] DEPARTMENT OF RADIOLOGY Final Report Signed by: Dr. Kimberly Cardenas
[2016-07-11] MEDS: CITALOPRAM 20 MG TABLET PO SCH (20:30)
[2016-07-11] MEDS: traZODone 50 MG TABLET PO PRN (20:31)
[2016-07-12] MEDS: SODIUM CHLORIDE 0.45% 1,000 ML IV SCH ×2 (01:38→10:45)
[2016-07-12] MEDS ORDERED: SODIUM PHOSPHATE ENEMA 133 ML BOTTLE RECTAL ONE (04:55)
[2016-07-12 06:34] LABS: Basophils % 0.2 % (0.0-0.8); Eosinophils # 0.3 10*3/uL (0.0-0.87); Eosinophils % 6.1 % (0.00-10.9); Hematocrit 30.8 VOL% (35.7-47.0); Immature Granulocytes % 0.2 %; Immature Granulocytes Absolute 0.01 #; Lymphocytes % 48.5 % (21.3-54.2); Mean Corpuscular HGB Conc 32.5 GM/DL (32-36); Mean Corpuscular Hemoglobin 26 PG (27-34); Mean Corpuscular Volume 80.6 FL (87-102); Mean Platelet Volume 10.7 FL (9.6-12.0); Monocytes # 0.5 10*3/uL (0.11-0.8); Monocytes % 11.2 % (1.7-12.7); Neutrophils # 1.4 10*3/uL (1.4-7.4); Neutrophils % 33.8 % (38.7-73.9); Platelet Count 213 10*3/uL (130-400); Red Blood Count 3.82 10*6/uL (3.8-5.5); Red Cell Distribution Width 14.7 % (9.3-17.3); White Blood Count 4.1 10*3/uL (4.5-13.71)
[2016-07-12 06:58] LABS: Hypochromasia 1+; Microcytosis 1+; Platelet Estimate Adequate
[2016-07-12 07:06] LABS: Calcium 8.1 MG/DL (8.5-10.1); Osmolality,Calculated 290.3 MOS/KG (273-304); Potassium 3.6 MMOL/L (3.5-5.1)
[2016-07-12] MEDS: TOPIRAMATE 25 MG TABLET PO SCH (09:03)
[2016-07-12] MEDS: FERROUS SULFATE 325 MG TABLET PO SCH ×2 (09:03→16:30)
[2016-07-12] MEDS: GABAPENTIN 300 MG CAPSULE PO SCH ×2 (09:04→16:33)
[2016-07-12] MEDS: ALPRAZolam 0.5 MG TABLET PO PRN (09:05)
[2016-07-12] MEDS: PANTOPRAZOLE 40 MG VIAL IV SCH (09:05)
--- NOTE | 2016-07-12 16:02 | Discharge Summary ---
Hospital Course - Hospital Course Hospital Course: This is an addendum to the discharge summary dictated previously. Mrs. Holden' s previous discharge was held in light of worsening abdominal distention. KUB indicated possible mild ileus. Patient was kept nothing by mouth and serial KUBs confirmed improvement in appearance. Patient was tolerating a diet by discharge. She'll continue her home medications at discharge. - Time spent with patient Time with patient DS: Greater than 30 minutes Diagnosis - Discharge Diagnosis (1) Ileus Status: Acute (2) History of diabetic gastroparesis Status: Acute (3) Gastritis and duodenitis Status: Acute (4) Fever Status: Acute Specialty Discharge - Follow Up or Referrals Discharge Plan - Discharge Data Disposition: Disch To Home/Self Care Condition at Discharge: Stable Discharge Diet: advance to your usual diet - Discharge Medications New ALPRAZolam [Xanax] 0.5 mg PO TID PRN #15 tablet PRN Reason: Anxiety Ferrous Sulfate Tab [Feosol Original Tab] 325 mg PO TID #90 tablet Continue Citalopram [CeleXA] 20 mg PO BEDTIME Gabapentin 1 tablet PO TID Zolpidem [Ambien] 1 tablet PO BEDTIME Hyoscyamine Tab [Levsin Tab] 0.125 mg PO QID PRN #30 tablet PRN Reason: stomach cramps Topiramate [Topamax] 50 mg PO BID Metoclopramide Liquid [Reglan Liquid] 10 mg PO ACHS #100 udcup Pantoprazole Tab [Protonix Tab] 40 mg PO BID #60 tablet - Follow Up or Referral - Forms/Instructions Instructions: Iron Supplements (By mouth), Alprazolam (By mouth), Pantoprazole (By mouth), Gastroparesis (DC) Exam - Constitutional Vitals: Period Temp Pulse Resp BP Sys/Mccarthy Pulse Ox Last 24 Hr 97.1 F-97.8 F 60-71 18-18 100-128/64-84 99-100 Discharge Results Procedures and tests throughout hospitalization: Pending Orders 07/08/16 13:00 Occult Blood, Stool Routine 07/11/16 09:39 Blood Culture Routine Labs on day of discharge: Labs from last 24 hours 07/12/16 07/12/16 07/12/16 07:29 06:22 06:22 WBC 4.1 L D RBC 3.82 Hgb 10.0 L Hct 30.8 L MCV 80.6 L MCH 26 L MCHC 32.5 RDW 14.7 Plt Count 213 MPV 10.7 Neut % (Auto) 33.8 L Lymph % (Auto) 48.5 [place] % (Auto) 11.2 Eos % (Auto) 6.1 Baso % (Auto) 0.2 Neut # (Auto) 1.4 Lymph # (Auto) 2.0 [place] # (Auto) 0.5 Eos # (Auto) 0.3 Baso # (Auto) 0.0 Immature Gran % 0.2 Nucleated RBC % 0.0 Immature Gran # 0.01 Nucleated RBCs # 0.00 Platelet Estimate Adequate Hypochromasia 1+ Microcytosis 1+ Sodium 148 H Potassium 3.6 Chloride 117 H Carbon Dioxide 21 Anion Gap 13.6 BUN 8 Creatinine 1.20 H GFR Calculation 66 BUN/Creatinine Ratio 6.00 Glucose 89 POC Glucose 90 Calculated Osmolality 290.3 Calcium 8.1 L Preliminary micro results at discharge 07/11/16 09:39 Blood Culture - Preliminary Blood No growth at 1 day 07/11/16 09:39 Blood Culture - Preliminary Blood No growth at 1 day DS: Provider Date of admission: 07/03/16 15:01 Primary care physician: . Basilia PCP Attending physician on admission: Rowena Thompson MD Discharging clinician: Yumiko Yang MD Expected date of discharge: 07/12/16
[2016-07-12 16:46] VITALS: BP 120/78
[2016-07-12] MEDS: ONDANSETRON 4 MG/2 ML VIAL IV PRN (17:22)
== END 2016-07-12 19:45 | disposition home or self-care (01) | DRG 73 ==
LOC: N.ED 10:43 → N.EDINP 10:43 → SUATTDRO 14:05 → N.5E 15:45
PROVIDERS: ADMIT Family Medicine; ATTEND Student in an Organized Health Care Education/Training Program

== ENCOUNTER 2018-12-24 16:34 | Inpatient (IN) ==
[2018-12-24] MEDS ORDERED: MORPHINE 4 MG/1 ML VIAL IV STA (17:05)
[2018-12-24] MEDS ORDERED: ONDANSETRON 4 MG/2 ML VIAL IV STA (17:05)
[2018-12-24] MEDS ORDERED: SODIUM CHLORIDE 0.9% 1,000 ML IV STA ×2 (17:05→20:15)
[2018-12-24] MEDS ORDERED: PANTOPRAZOLE 40 MG VIAL IV STA (17:26)
[2018-12-24 17:40] LABS: Basophils % 0.3 % (0.0-0.8); Eosinophils # 0.1 10*3/uL (0.0-0.87); Eosinophils % 2.2 % (0.00-10.9); Hematocrit 38.6 VOL% (35.7-47.0); Hemoglobin 12.9 GM/DL (12.0-16.0); Immature Granulocytes % 0.5 %; Immature Granulocytes Absolute 0.03 #; Lymphocytes # 2.7 10*3/uL (1.4-4.0); Lymphocytes % 41.1 % (21.3-54.2); Mean Corpuscular HGB Conc 33.4 GM/DL (32-36); Mean Corpuscular Volume 79.9 FL (87-102); Mean Platelet Volume 11.5 FL (9.6-12.0); Monocytes % 8.9 % (1.7-12.7); Platelet Count 223 T/CUMM (130-400); Red Blood Count 4.83 MC/CUMM (3.8-5.5); Red Cell Distribution Width 14.2 % (9.3-17.3); White Blood Count 6.5 T/CUMM (4-12)
[2018-12-24 17:57] LABS: Albumin 3.8 G/DL (3.4-5.0); Bilirubin,Total 0.4 MG/DL (0.2-1.0); Osmolality,Calculated 276.7 MOS/KG (273-304); Total Protein 8.2 G/DL (6.4-8.3)
[2018-12-24 18:18] LABS: Apearance,Urine CLEAR (Clear); Bilirubin,Urine Negative (Negative); Blood, Urine Small mg/dL (Negative); Glucose,Urine (UA) Negative (Negative); Hyaline Casts,Urine 3 /LPF (0-3); Ketones,Urine Negative (Negative); Mucus,Urine Occasional /LPF (Occasional); Nitrite,Urine Negative (Negative); Protein,Urine Negative; RBC,Urine 4 /HPF (0-4); Squamous Epithelial Cell,Urine Occasional /HPF (0-10); Urine Color Yellow (Yellow); Urine Specific Gravity 1.013 (1.001-1.035); Urine Urobilinogen < 2.0 EU/DL (0.2-1.0); WBC,Urine 1 /HPF (0-6)
[2018-12-24] MEDS ORDERED: HYDROmorphone 2 MG/1 ML VIAL IV STA (18:38)
[2018-12-24] MEDS ORDERED: METOCLOPRAMIDE 10 MG/2 ML VIAL IV STA (18:38)
[2018-12-24] MEDS ORDERED: PROMETHAZINE INJ 25 MG, diphenhydrAMINE INJ 50 MG in SODIUM CHLORIDE 0.9% 1,000 ML IV SCH (21:00)
[2018-12-24] MEDS ORDERED: PROMETHAZINE INJ 25 MG, diphenhydrAMINE INJ 50 MG in SODIUM CHLORIDE 0.9% 1,000 ML IV ONE (21:30)
[2018-12-24] MEDS ORDERED: ENOXAPARIN 40 MG/0.4 ML SYRINGE SUBCUT SCH (22:32)
[2018-12-24] MEDS ORDERED: MAGNESIUM SULF RIDER 4 GM in PREMIX 1 EACH IV PRN (22:32)
[2018-12-24] MEDS ORDERED: MAGNESIUM SULF RIDER 2 GM in PREMIX 1 EACH IV PRN (22:32)
[2018-12-24] MEDS ORDERED: PROMETHAZINE 25 MG/1 ML VIAL IM PRN (22:32)
[2018-12-24] MEDS ORDERED: ACETAMINOPHEN 325 MG TABLET PO PRN (22:32)
[2018-12-24] MEDS: ZALEPLON 5 MG CAPSULE PO SCH (23:37)
[2018-12-24] MEDS: POTASSIUM CHLORIDE RIDER 10 MEQ in PREMIX 1 EACH IV PRN (23:37)
[2018-12-24] MEDS: ONDANSETRON 4 MG/2 ML VIAL IV PRN (23:38)
[2018-12-24] MEDS: FERROUS SULFATE 325 MG TABLET PO SCH (23:38)
[2018-12-24] MEDS: ALPRAZolam 0.5 MG TABLET PO PRN (23:38)
[2018-12-24] MEDS: TOPIRAMATE 25 MG TABLET PO SCH (23:38)
[2018-12-24] MEDS: oxyCODONE/ACETAMINOPHEN 5-325 MG TABLET PO PRN (23:38)
[2018-12-24] MEDS: PANTOPRAZOLE 40 MG TABLET PO SCH (23:39)
[2018-12-24] MEDS: METOCLOPRAMIDE 10 MG/10 ML UDCUP PO SCH (23:39)
[2018-12-24] MEDS: GABAPENTIN 300 MG CAPSULE PO SCH (23:43)
[2018-12-25] MEDS: POTASSIUM CHLORIDE RIDER 10 MEQ in PREMIX 1 EACH IV PRN ×2 (00:44→02:48)
[2018-12-25] MEDS: SODIUM CHLORIDE 0.9% 1,000 ML IV SCH ×3 (00:45→08:21)
[2018-12-25] MEDS: oxyCODONE/ACETAMINOPHEN 5-325 MG TABLET PO PRN ×3 (06:16→21:27)
[2018-12-25] MEDS: ONDANSETRON 4 MG/2 ML VIAL IV PRN (06:17)
[2018-12-25 07:41] LABS: Basophils % 0.4 % (0.0-0.8); Eosinophils # 0.2 10*3/uL (0.0-0.87); Eosinophils % 3.7 % (0.00-10.9); Hemoglobin 11.7 GM/DL (12.0-16.0); Immature Granulocytes % 0.2 %; Immature Granulocytes Absolute 0.01 #; Mean Corpuscular HGB Conc 32.5 GM/DL (32-36); Mean Corpuscular Volume 81.6 FL (87-102); Mean Platelet Volume 11.3 FL (9.6-12.0); Monocytes % 10.1 % (1.7-12.7); Neutrophils % 25.6 % (38.7-73.9); Platelet Count 179 T/CUMM (130-400); Red Blood Count 4.41 MC/CUMM (3.8-5.5); Red Cell Distribution Width 14.5 % (9.3-17.3); White Blood Count 4.9 T/CUMM (4-12)
[2018-12-25 07:55] LABS: Calcium 7.1 MG/DL (8.5-10.1); Osmolality,Calculated 284.8 MOS/KG (273-304)
[2018-12-25 08:15] LABS: Atypical Lymphocytes Few; Eosinophils 7 % (0-10); Hypochromasia 1+; Lymphocytes 60 % (20-55); Segmented Neutrophils 26 % (50-85); Total Cells Counted 100
[2018-12-25 08:16] LABS: Microcytosis 1+; Platelet Estimate Adequate
[2018-12-25] MEDS: METOCLOPRAMIDE 10 MG/10 ML UDCUP PO SCH ×6 (08:17→21:55)
[2018-12-25] MEDS: METHOCARBAMOL 500 MG TABLET PO SCH (08:17)
[2018-12-25] MEDS: GABAPENTIN 300 MG CAPSULE PO SCH ×3 (08:17→21:27)
[2018-12-25] MEDS: TOPIRAMATE 25 MG TABLET PO SCH ×2 (08:17→21:27)
[2018-12-25] MEDS: PANTOPRAZOLE 40 MG TABLET PO SCH ×2 (08:17→21:32)
[2018-12-25] MEDS: ALPRAZolam 0.5 MG TABLET PO PRN ×2 (08:17→21:27)
[2018-12-25] MEDS: FERROUS SULFATE 325 MG TABLET PO SCH (08:17)
[2018-12-25] MEDS ORDERED: METRONIDAZOLE 0.75% VAG CREAM 70 GM TUBE VAG SCH (09:00)
[2018-12-25] MEDS: BUPRENORPHINE HCL 600 MCG BUCCAL SCH (10:51)
[2018-12-25] MEDS: ZALEPLON 5 MG CAPSULE PO SCH (21:28)
[2018-12-26] MEDS: VANCOMYCIN 50 MG/ML 60 ML/BOTTLE PO SCH ×4 (00:36→17:41)
[2018-12-26] MEDS: SODIUM CHLORIDE 0.9% 1,000 ML IV SCH ×4 (02:38→23:31)
[2018-12-26] MEDS: ONDANSETRON 4 MG/2 ML VIAL IV PRN ×3 (04:20→21:38)
[2018-12-26] MEDS: oxyCODONE/ACETAMINOPHEN 5-325 MG TABLET PO PRN ×3 (04:21→21:37)
[2018-12-26 05:39] LABS: Basophils % 0.2 % (0.0-0.8); Eosinophils # 0.2 10*3/uL (0.0-0.87); Eosinophils % 2.6 % (0.00-10.9); Hematocrit 33.7 VOL% (35.7-47.0); Hemoglobin 10.7 GM/DL (12.0-16.0); Immature Granulocytes % 0.5 %; Immature Granulocytes Absolute 0.03 #; Lymphocytes # 2.8 10*3/uL (1.4-4.0); Lymphocytes % 45.7 % (21.3-54.2); Mean Corpuscular HGB Conc 31.8 GM/DL (32-36); Mean Corpuscular Volume 83.2 FL (87-102); Mean Platelet Volume 11.1 FL (9.6-12.0); Monocytes % 7.2 % (1.7-12.7); Neutrophils % 43.8 % (38.7-73.9); Platelet Count 202 T/CUMM (130-400); Red Blood Count 4.05 MC/CUMM (3.8-5.5); Red Cell Distribution Width 14.4 % (9.3-17.3); White Blood Count 6.2 T/CUMM (4-12)
[2018-12-26 06:05] LABS: Calcium 7.2 MG/DL (8.5-10.1)
[2018-12-26] MEDS: METOCLOPRAMIDE 10 MG/10 ML UDCUP PO SCH ×4 (07:28→21:41)
[2018-12-26] MEDS: ALPRAZolam 0.5 MG TABLET PO PRN ×2 (08:23→21:38)
[2018-12-26] MEDS: METHOCARBAMOL 500 MG TABLET PO SCH (08:23)
[2018-12-26] MEDS: GABAPENTIN 300 MG CAPSULE PO SCH ×3 (08:24→21:37)
[2018-12-26] MEDS: PANTOPRAZOLE 40 MG TABLET PO SCH ×2 (08:24→21:41)
[2018-12-26] MEDS: TOPIRAMATE 25 MG TABLET PO SCH ×2 (08:35→21:41)
[2018-12-26] MEDS: MORPHINE 4 MG/1 ML VIAL IV PRN ×2 (12:43→23:27)
[2018-12-26] MEDS: ZALEPLON 5 MG CAPSULE PO SCH (21:38)
[2018-12-27] MEDS: VANCOMYCIN 50 MG/ML 60 ML/BOTTLE PO SCH ×4 (00:05→18:03)
[2018-12-27 06:34] LABS: Basophils % 0.5 % (0.0-0.8); Eosinophils # 0.2 10*3/uL (0.0-0.87); Eosinophils % 2.9 % (0.00-10.9); Hematocrit 34.1 VOL% (35.7-47.0); Hemoglobin 10.8 GM/DL (12.0-16.0); Immature Granulocytes % 0.3 %; Immature Granulocytes Absolute 0.02 #; Lymphocytes # 3.2 10*3/uL (1.4-4.0); Lymphocytes % 48.3 % (21.3-54.2); Mean Corpuscular HGB Conc 31.7 GM/DL (32-36); Mean Corpuscular Volume 83.8 FL (87-102); Mean Platelet Volume 11.8 FL (9.6-12.0); Monocytes % 5.6 % (1.7-12.7); Neutrophils % 42.4 % (38.7-73.9); Platelet Count 215 T/CUMM (130-400); Red Blood Count 4.07 MC/CUMM (3.8-5.5); Red Cell Distribution Width 14.3 % (9.3-17.3); White Blood Count 6.6 T/CUMM (4-12)
[2018-12-27 06:48] LABS: Calcium 8.2 MG/DL (8.5-10.1); Osmolality,Calculated 283.8 MOS/KG (273-304)
[2018-12-27] MEDS: oxyCODONE/ACETAMINOPHEN 5-325 MG TABLET PO PRN ×2 (08:24→16:29)
[2018-12-27] MEDS: GABAPENTIN 300 MG CAPSULE PO SCH ×3 (08:25→20:29)
[2018-12-27] MEDS: METHOCARBAMOL 500 MG TABLET PO SCH (08:25)
[2018-12-27] MEDS: PANTOPRAZOLE 40 MG TABLET PO SCH ×2 (08:26→20:29)
[2018-12-27] MEDS: METOCLOPRAMIDE 10 MG/10 ML UDCUP PO SCH ×4 (08:28→20:30)
[2018-12-27] MEDS: TOPIRAMATE 25 MG TABLET PO SCH ×2 (08:28→20:34)
[2018-12-27] MEDS: SODIUM CHLORIDE 0.9% 1,000 ML IV SCH ×3 (09:25→20:15)
[2018-12-27] MEDS: MORPHINE 4 MG/1 ML VIAL IV PRN ×3 (09:30→22:02)
[2018-12-27] MEDS: ALPRAZolam 0.5 MG TABLET PO PRN ×2 (09:35→20:35)
[2018-12-27] MEDS: ZALEPLON 5 MG CAPSULE PO SCH (20:29)
[2018-12-27] MEDS: ONDANSETRON 4 MG/2 ML VIAL IV PRN (22:10)
[2018-12-28] MEDS: oxyCODONE/ACETAMINOPHEN 5-325 MG TABLET PO PRN ×2 (01:16→17:13)
[2018-12-28] MEDS: VANCOMYCIN 50 MG/ML 60 ML/BOTTLE PO SCH ×5 (01:19→23:30)
[2018-12-28] MEDS: MORPHINE 4 MG/1 ML VIAL IV PRN ×4 (03:18→23:38)
[2018-12-28 05:29] LABS: Basophils % 0.3 % (0.0-0.8); Eosinophils # 0.2 10*3/uL (0.0-0.87); Eosinophils % 3.3 % (0.00-10.9); Hemoglobin 10.7 GM/DL (12.0-16.0); Immature Granulocytes % 0.3 %; Immature Granulocytes Absolute 0.02 #; Lymphocytes # 3.4 10*3/uL (1.4-4.0); Mean Corpuscular HGB Conc 32.4 GM/DL (32-36); Mean Corpuscular Volume 82.1 FL (87-102); Monocytes % 5.5 % (1.7-12.7); Neutrophils % 35.6 % (38.7-73.9); Platelet Count 222 T/CUMM (130-400); Red Blood Count 4.02 MC/CUMM (3.8-5.5); Red Cell Distribution Width 14.1 % (9.3-17.3); White Blood Count 6.1 T/CUMM (4-12)
[2018-12-28] MEDS: SODIUM CHLORIDE 0.9% 1,000 ML IV SCH ×3 (05:50→22:00)
[2018-12-28 05:59] LABS: Calcium 7.9 MG/DL (8.5-10.1)
[2018-12-28 06:23] LABS: Anisocytosis 1+; Eosinophils 3 % (0-10); Hypochromasia 1+; Lymphocytes 48 % (20-55); Platelet Estimate Adequate; Segmented Neutrophils 46 % (50-85); Total Cells Counted 100
[2018-12-28] MEDS: METOCLOPRAMIDE 10 MG/10 ML UDCUP PO SCH ×4 (06:36→20:09)
[2018-12-28] MEDS: ALPRAZolam 0.5 MG TABLET PO PRN ×2 (06:36→20:09)
[2018-12-28] MEDS: METHOCARBAMOL 500 MG TABLET PO SCH (08:10)
[2018-12-28] MEDS: GABAPENTIN 300 MG CAPSULE PO SCH ×3 (08:11→20:09)
[2018-12-28] MEDS: TOPIRAMATE 25 MG TABLET PO SCH ×2 (08:11→20:09)
[2018-12-28] MEDS: PANTOPRAZOLE 40 MG TABLET PO SCH ×2 (08:11→20:09)
[2018-12-28] MEDS ORDERED: CYCLOBENZAPRINE 10 MG TABLET PO PRN (14:15)
[2018-12-28] MEDS: ZALEPLON 5 MG CAPSULE PO SCH (20:09)
[2018-12-28] MEDS: ONDANSETRON 4 MG/2 ML VIAL IV PRN ×2 (20:21→23:38)
[2018-12-29] MEDS: SODIUM CHLORIDE 0.9% 1,000 ML IV SCH ×3 (01:27→09:26)
[2018-12-29] MEDS: ONDANSETRON 4 MG/2 ML VIAL IV PRN (05:36)
[2018-12-29] MEDS: MORPHINE 4 MG/1 ML VIAL IV PRN (05:36)
[2018-12-29] MEDS: VANCOMYCIN 50 MG/ML 60 ML/BOTTLE PO SCH ×2 (05:36→11:19)
[2018-12-29 06:10] LABS: Calcium 7.9 MG/DL (8.5-10.1); Osmolality,Calculated 284.8 MOS/KG (273-304)
[2018-12-29] MEDS: PANTOPRAZOLE 40 MG TABLET PO SCH (09:23)
[2018-12-29] MEDS: METHOCARBAMOL 500 MG TABLET PO SCH (09:23)
[2018-12-29] MEDS: GABAPENTIN 300 MG CAPSULE PO SCH (09:23)
[2018-12-29] MEDS: TOPIRAMATE 25 MG TABLET PO SCH (09:23)
[2018-12-29] MEDS: METOCLOPRAMIDE 10 MG/10 ML UDCUP PO SCH ×2 (09:24→11:18)
[2018-12-29] MEDS: ALPRAZolam 0.5 MG TABLET PO PRN (09:31)
[2018-12-29] MEDS: oxyCODONE/ACETAMINOPHEN 5-325 MG TABLET PO PRN (10:36)
[2018-12-29 13:29] VITALS: BP 135/71
== END 2018-12-29 13:09 | disposition home or self-care (01) | DRG 372 ==
LOC: N.EDINP 16:34 → N.ED 16:34 → N.5E 20:34
PROVIDERS: ADMIT Internal Medicine; ATTEND Internal Medicine

== ENCOUNTER 2020-02-15 12:22 | Observation (INO) ==
[2020-02-15 13:07] LABS: Basophils % 0.2 % (0.0-0.8); Eosinophils # 0.1 10*3/uL (0.0-0.87); Eosinophils % 0.9 % (0.00-10.9); Hematocrit 39.8 VOL% (35.7-47.0); Hemoglobin 13.1 GM/DL (12.0-16.0); Immature Granulocytes % 0.4 %; Immature Granulocytes Absolute 0.05 #; Lymphocytes # 3.5 10*3/uL (1.4-4.0); Lymphocytes % 25.9 % (21.3-54.2); Mean Corpuscular HGB Conc 32.9 GM/DL (32-36); Mean Corpuscular Volume 80.6 FL (87-102); Mean Platelet Volume 9.9 FL (9.6-12.0); Monocytes % 3.9 % (1.7-12.7); Neutrophils % 68.7 % (38.7-73.9); Platelet Count 297 T/CUMM (130-400); Red Blood Count 4.94 MC/CUMM (3.8-5.5); Red Cell Distribution Width 13.9 % (9.3-17.3); White Blood Count 13.6 T/CUMM (4-12)
[2020-02-15 13:15] LABS: PT Patient Result 10.9 SECS (9.8-11.9)
[2020-02-15 13:26] LABS: Albumin 4.4 G/DL (3.4-5.0); Bilirubin,Total 0.4 MG/DL (0.2-1.0); Calcium 9.2 MG/DL (8.5-10.1); Osmolality,Calculated 277.4 MOS/KG (273-304); Total Protein 8.5 G/DL (6.4-8.3)
[2020-02-15 13:27] LABS: Apearance,Urine CLEAR (Clear); Bilirubin,Urine Negative (Negative); Blood, Urine Negative (Negative); Glucose,Urine (UA) Negative (Negative); Ketones,Urine Negative (Negative); Mucus,Urine Occasional /LPF (Occasional); Nitrite,Urine Negative (Negative); Protein,Urine Negative; RBC,Urine 3 /HPF (0-4); Squamous Epithelial Cell,Urine Occasional /HPF (0-10); Urine Color Straw (Yellow); Urine Specific Gravity 1.009 (1.001-1.035); Urine Urobilinogen < 2.0 EU/DL (0.2-1.0); WBC,Urine <1 /HPF (0-6)
[2020-02-15 13:29] LABS: Barbiturates Screen,Urine Negative (Negative); Benzodiazepines Screen,Urine Negative (Negative); Cannabinoid Screen,Urine Negative (Negative); Opiate Screen,Urine Positive (Negative); Phencyclidine Screen,Urine Negative (Negative)
[2020-02-15] MEDS ORDERED: LABETALOL 20 MG/4 ML SYRINGE IV STA ×2 (13:47→14:24)
[2020-02-15] MEDS ORDERED: ALTEPLASE 100 MG/100 ML BOTTLE ONE (13:56)
[2020-02-15] MEDS ORDERED: GLUCAGON 1 MG VIAL IM PRN (16:38)
[2020-02-15] MEDS ORDERED: amLODIPine 5 MG TABLET PO STA (16:38)
[2020-02-15] MEDS ORDERED: DEXTROSE 50% 25 GM/50 ML VIAL IV PRN (16:38)
[2020-02-15] MEDS ORDERED: NICOTINE 21 MG/24 HR PATCH TRANSDERM PRN (16:38)
[2020-02-15] MEDS ORDERED: ACETAMINOPHEN 325 MG TABLET PO PRN (16:38)
[2020-02-15 17:11] LABS: Risk Ratio 3.35; Thyroid Stimulating Hormone 0.575 uIU/ml (0.358-3.74); VLDL CHOLESTEROL 23.2 MG/DL
[2020-02-15] MEDS: CLOPIDOGREL 75 MG TABLET PO SCH (17:21)
[2020-02-15] MEDS: ONDANSETRON 4 MG/2 ML VIAL IV PRN ×2 (18:00→21:30)
[2020-02-15] MEDS: ZALEPLON 5 MG CAPSULE PO PRN (21:17)
[2020-02-15] MEDS: ATORVASTATIN 40 MG TABLET PO SCH (21:17)
[2020-02-15] MEDS: TOPIRAMATE 25 MG TABLET PO SCH (21:17)
[2020-02-15] MEDS: oxyCODONE/ACETAMINOPHEN 5-325 MG TABLET PO PRN (22:40)
[2020-02-16] MEDS: MORPHINE 4 MG/1 ML VIAL IV PRN ×6 (01:24→23:03)
[2020-02-16] MEDS: ONDANSETRON 4 MG/2 ML VIAL IV PRN ×5 (01:25→23:03)
[2020-02-16] MEDS: ASPIRIN EC 81 MG TABLET PO SCH (08:52)
[2020-02-16] MEDS: CLOPIDOGREL 75 MG TABLET PO SCH (08:52)
[2020-02-16] MEDS: amLODIPine 5 MG TABLET PO SCH (08:52)
[2020-02-16] MEDS: TOPIRAMATE 25 MG TABLET PO SCH ×2 (08:52→20:31)
[2020-02-16] MEDS: oxyCODONE/ACETAMINOPHEN 5-325 MG TABLET PO PRN ×2 (15:06→20:33)
[2020-02-16] MEDS: ATORVASTATIN 40 MG TABLET PO SCH (20:31)
[2020-02-16] MEDS: ZALEPLON 5 MG CAPSULE PO PRN (20:33)
[2020-02-17] MEDS: ONDANSETRON 4 MG/2 ML VIAL IV PRN ×2 (03:43→09:51)
[2020-02-17] MEDS: MORPHINE 4 MG/1 ML VIAL IV PRN (03:43)
[2020-02-17 05:14] LABS: Basophils % 0.6 % (0.0-0.8); Eosinophils # 0.3 10*3/uL (0.0-0.87); Eosinophils % 3.6 % (0.00-10.9); Hematocrit 37.5 VOL% (35.7-47.0); Hemoglobin 12.6 GM/DL (12.0-16.0); Immature Granulocytes % 0.3 %; Immature Granulocytes Absolute 0.02 #; Lymphocytes # 3.9 10*3/uL (1.4-4.0); Lymphocytes % 55.7 % (21.3-54.2); Mean Corpuscular HGB Conc 33.6 GM/DL (32-36); Mean Corpuscular Volume 79.1 FL (87-102); Mean Platelet Volume 10.8 FL (9.6-12.0); Monocytes % 7.1 % (1.7-12.7); Neutrophils % 32.7 % (38.7-73.9); Platelet Count 295 T/CUMM (130-400); Red Blood Count 4.74 MC/CUMM (3.8-5.5); Red Cell Distribution Width 14.1 % (9.3-17.3)
[2020-02-17 05:37] LABS: Osmolality,Calculated 275.5 MOS/KG (273-304)
[2020-02-17 05:45] LABS: Eosinophils 3 % (0-10); Lymphocytes 56 % (20-55); Platelet Estimate Adequate; Segmented Neutrophils 39 % (50-85); Total Cells Counted 100
[2020-02-17 05:46] LABS: Atypical Lymphocytes Few; Hypochromasia 1+; Microcytosis Slight; Ovalocytes Slight
[2020-02-17 08:22] VITALS: BP 126/70
[2020-02-17] MEDS: oxyCODONE/ACETAMINOPHEN 5-325 MG TABLET PO PRN (09:46)
[2020-02-17] MEDS: CLOPIDOGREL 75 MG TABLET PO SCH (09:46)
[2020-02-17] MEDS: TOPIRAMATE 25 MG TABLET PO SCH (09:46)
[2020-02-17] MEDS: amLODIPine 5 MG TABLET PO SCH (09:46)
[2020-02-17] MEDS: ASPIRIN EC 81 MG TABLET PO SCH (09:46)
== END 2020-02-17 11:40 | disposition home health service (06) ==
LOC: N.EDINP 12:22 → N.ED 12:22 → SUATTDRO 16:38 → N.TELES 17:29
PROVIDERS: ADMIT Internal Medicine; ATTEND Internal Medicine